=== PATIENT | male | born 1950 | race Hispanic/Latino ===

== ENCOUNTER 2017-07-07 08:06 | Observation (INO) | payer BC ==
[2017-07-07 08:20] VITALS: BMI 40.4
--- NOTE | 2017-07-07 09:00 | ED PDOC ---
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 Patient reports feeling chest tightness associated with lightheadedness, shortness of breath, and feeling clammy. Patient notes having prior episodes similar to this one, but it never lasted more than 5 minutes, compared to this episode which is lasting ~ 40 minutes. Patient denies fever, chills, chest pain , abdominal pain, nausea/vomiting, dysuria, urine output changes, LOC/dizziness/ lightheadedness, or other complaints. pt is here for further eval pt's without other complaints PMD: Dr. Flores Bankruptcy Law Specialist: Dr. Sanders (last visit was less than 6 months ago) Time/Duration: Prior to Arrival, 1 hour Symptom Onset: Sudden Symptom Course: Unchanged Quality: Tightness Severity Level: Mild Activities at Onset: Rest Context: Work Past Medical History - Provider Review Nursing Documentation Reviewed: Yes - Travel History Have you recently traveled outside [place] w/in the past 3 mons?: No - Past History Past History: No Previous - Infectious Disease Hx of Infectious Diseases: None - Cardiac Hx Cardiac Disorders: Yes (CAD s/p PCI) Hx Hypertension: Yes Other/Comment: hx of left carotid artery occluded no sx as per pt - Pulmonary Hx Respiratory Disorders: No Hx Chronic Obstructive Pulmonary Disease (COPD): No - Neurological Hx Neurological Disorder: Yes HX Cerebrovascular Accident: Yes (L-sided weakness 2004) Other/Comment: left side facial numbness "once and a while" - HEENT Hx HEENT Disorder: Yes (eyeglasses) Hx Blind: No Hx Cataracts: Yes (r eye cataract no sx left eye sx lens replacement) Hx Deafness: No Hx Difficulty Chewing: No Hx Epistaxis: No Hx Glaucoma: Yes Hx Macular Degeneration: No - Renal Hx Renal Disorder: No Hx Renal Failure: No - Endocrine/Metabolic Hx Endocrine Disorders: Yes Hx Diabetes Mellitus Type 2: Yes - Hematological/Oncological Hx Blood Disorders: No - Integumentary Hx Dermatological Disorder: No Hx Basal Cell Carcinoma: No Hx Eczema: No Hx Melanoma: No Hx Psoriasis: No Hx Squamous Cell Carcinoma: No Other/Comment: dry flakey skin both feet +2 edema, no nail to left great toe, small dry .5cm ulcer between 4th and 5th toe left foot. hammertoes 2 3 4 both feet, dry right heel wound 2cm round and dry hard white skin to left heel - Musculoskeletal/Rheumatological Hx Falls: No - Gastrointestinal Hx Gastrointestinal Disorders: Yes Hx Colostomy: No Hx Crohn's Disease: No Hx Diverticulitis: No Hx Gall Bladder Disease: No Hx Gastroesophageal Reflux: Yes Hx Gastrointestinal Ulcer: No Hx Ileostomy: No Hx Liver Failure: No Hx Pancreatitis: No HX Swallowing Problems: No - Genitourinary/Gynecological Hx Genitourinary Disorders: No Hx Hematuria: No Hx Incontinence: No Hx Prostate Problems: No Hx Sexually Transmitted Diseases: No Hx Urinary Tract Infection: No - Psychiatric Hx Psychophysiologic Disorder: No Hx Anxiety: No Hx Bipolar Disorder: No Hx Depression: No Hx Emotional Abuse: No Hx Hallucinations: No Hx Panic Disorder: No Hx Post Traumatic Stress Disorder: No Hx Psychosis: No Hx Physical Abuse: No Hx Schizophrenia: No Hx Sexual Abuse: No Hx Substance Use: No - Surgical History Hx Amputation: No Hx Appendectomy: No Hx Cardiac Catheterization: No Hx Cholecystectomy: No Hx Coronary Stent: Yes (ptca x1 stent) Hx Gastric Bypass Surgery: No Hx Hysterectomy: No Hx Joint Replacement: No Hx Kidney Transplant: No Hx Liver Transplant: No Hx Mastectomy: No Hx Musculoskeletal Surgery: Yes Hx Open Heart Surgery: No Hx Orthopedic Surgery: No Hx Splenectomy: No Hx Valve Replacement: No Other/Comment: left femoral arterial bypass 02/19/15, femoral angiogram x2, cardiac cath/ptca with 1 stent, right quadricept repair lle, right total hip replacement 10/2013 - Anesthesia Hx Anesthesia: Yes Hx Anesthesia Reactions: No Hx Malignant Hyperthermia: No - Suicidal Assessment Feels Threatened In Home Enviroment: No Family/Social History - Physician Review Nursing Documentation Reviewed: Yes Family/Social History: Unknown Family HX Smoking Status: Never Smoked Hx Alcohol Use: No Hx Substance Use: No Hx Substance Use Treatment: No Allergies/Home Meds Allergies/Adverse Reactions: Allergies Iodine and Iodide Containing Produc Allergy (Verified 07/07/17 08:35) RASH IV contrast Allergy (Uncoded 07/07/17 08:35) RASH Home Medications: Home Meds Medication Instructions Recorded Confirmed Losartan [Cozaar] 50 mg PO QAM 06/30/12 07/07/17 Metformin HCl 1,000 mg PO BID 06/30/12 07/07/17 Ramipril [Altace] 10 mg PO QAM 06/30/12 07/07/17 Rosuvastatin Calcium [Crestor] 20 mg PO DAILY 06/30/12 07/07/17 Timolol Maleate [Timolol GFS 5 ml] 1 drop OU QAM 06/30/12 07/07/17 Clopidogrel [Plavix] 75 mg PO DAILY 12/18/14 07/07/17 Insulin Glargine, Recombina 65 units SC HS 12/17/15 07/07/17 [Lantus] Insulin Lispro [humALOG] 20 units SC .BEFOREMEALS 12/17/15 07/07/17 Lansoprazole [Prevacid] 30 mg PO DAILY 12/17/15 07/07/17 Latanoprost 0.005% Opht [Xalatan 1 drop BOTHEYES DAILY 12/17/15 07/07/17 Opht] Aspirin [[place] Aspirin] 81 mg PO DAILY 07/07/17 07/07/17 Review of Systems - Review of Systems Constitutional: absent: Fatigue, Fevers Eyes: absent: Vision Changes ENT: absent: Sore Throat Respiratory: SOB Cardiovascular: Palpitations. absent: Chest Pain (chest tightness ) Gastrointestinal: absent: Abdominal Pain, Vomiting Genitourinary Male: absent: Dysuria, Urinary Output Changes Musculoskeletal: absent: Back Pain Skin: absent: Rash Neurological: Dizziness (lightheadedness). absent: Headache Endocrine: absent: Diaphoresis Hemo/Lymphatic: Normal Psychiatric: Normal Physical Exam Vital Signs Reviewed: Yes Vital Signs Temp Pulse Resp BP Pulse Ox 07/07/17 08:20 98.3 F 96 H 18 171/87 H 98 Temperature: Afebrile Blood Pressure: Hypertensive Pulse: Regular Respiratory Rate: Normal Appearance: Positive for: Well-Appearing, Non-Toxic, Uncomfortable, Other (alert /awake, GCS = 15, oriented x 3, slightly uncomfortable, resting in bed, NAD, cooperative, follows command with ease) Pain Distress: None Mental Status: Positive for: Alert and Oriented X 3 - Systems Exam Head: Present: Atraumatic, Normocephalic Pupils: Present: PERRL, Other (no nystagmus, no photophobia, sclera anicteric, visual field intact b/l) Extroacular Muscles: Present: EOMI Conjunctiva: Present: Normal Ears: Present: Normal Mouth: Present: Moist Mucous Membranes, Normal Teeth, Other (uvula/tongue are midline; no dsyphonia, no drooling/stridor, intact dentitions) Pharnyx: Present: Normal Nose (External): Present: Atraumatic Nose (Internal): Present: Normal Inspection Neck: Present: Normal Range of Motion, Trachea Midline. No: Meningeal Signs, MIDLINE TENDERNESS Respiratory/Chest: Present: Clear to Auscultation, Good Air Exchange, Other ( CTA b/l, no w/r/r, no tachypenia). No: Respiratory Distress, Accessory Muscle Use, Wheezes, Rales, Retracting, Rhonchi Cardiovascular: Present: Regular Rate and Rhythm, Normal S1, S2, Other ( occasional ectopies noted, regular rate). No: Murmurs Abdomen: Present: Normal Bowel Sounds, Other (well nourished/obese male, no focal tenderness, no pineda's sign, no mcburney's point tenderness, no masses/ rebound/guarding/rigidity). No: Tenderness, Distention, Peritoneal Signs, Rebound, Guarding Back: Present: Normal Inspection. No: CVA Tenderness, Midline Tenderness Upper Extremity: Present: Normal Inspection, Normal ROM, NORMAL PULSES, Neurovascularly Intact, Capillary Refill < 2s Lower Extremity: Present: Normal Inspection, NORMAL PULSES, Normal ROM, Neurovascularly Intact, Capillary Refill < 2 s. No: Rob's Sign Neurological: Present: GCS=15, CN II-XII Intact, Speech Normal, Other (no slurr speech, no facial asymmetries, NIH stroke scale ~ 0) Skin: Present: Warm, Normal Color, Other (cap refill < 1sec, no ulcerations, no petechiae). 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 FINDINGS: LUNGS: The lungs are clear. PLEURA: No significant pleural effusion identified, no pneumothorax apparent. CARDIOVASCULAR: Normal. OSSEOUS STRUCTURES: No significant abnormalities. VISUALIZED UPPER ABDOMEN: Normal. OTHER FINDINGS: None. IMPRESSION: No active pulmonary disease. 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 PCP, made aware, agrees with admission/ observation; would like to consult Dr Jack (cards) pt is made aware of his medical results agrees with admission/observation Re-evaluation Time: 10:24 Reassessment Condition: Improved - Critical Care Critical Care Minutes: 30 minutes Critical Care Time: Excluding Proc Time Narrative Critical Care (Text): 07/07/17 10:24 critical care time: 30min, excluding procedure time, excluding time teaching residents/students/mid-level providers; including initial eval/diagnosis, diagnostic interpretation, re-eval, consultations, final disposition - Lab Interpretations Lab Results: 07/07/17 08:23 07/07/17 08:20 Lab Results 07/07/17 08:30: Magnesium 1.8, NT-Pro-B Natriuret Pep 135 07/07/17 08:23: WBC 8.8, RBC 5.12, Hgb 14.2, Hct 43.2, MCV 84.4, MCH 27.7, MCHC 32.9, RDW 13.9, Plt Count 284, MPV 10.3, Gran % 63.8, Lymph % (Auto) 26.1, Tyrrell % (Auto) 8.1 H, Eos % (Auto) 1.7, Baso % (Auto) 0.3, Gran # 5.61, Lymph # (Auto ) 2.3, Tyrrell # (Auto) 0.7 H, Eos # (Auto) 0.2, Baso # (Auto) 0.03 07/07/17 08:20: PT 11.5, INR 1.00, APTT 30.1 07/07/17 08:20: Sodium 144, Potassium 4.1, Chloride 107, Carbon Dioxide 27, Anion Gap 15, BUN 23 H, Creatinine 1.1, Est GFR ( Amer) > 60, Est GFR ( Non-Af Amer) > 60, Random Glucose 122 H, Calcium 9.4, Total Bilirubin 0.4, AST 29, ALT 25, Alkaline Phosphatase 48, Lactate Dehydrogenase 375, Total Creatine Kinase 251 H, CK-MB (CK-2) 3.9 H, CK-MB (CK-2) % Cancelled, Troponin I 0.01, Total Protein 6.8, Albumin 4.2, Globulin 2.6, Albumin/Globulin Ratio 1.6 I have reviewed the lab results: Yes Interpretation: All labs normal - RAD Interpretation Narrative RAD Interpretations (Text): 07/07/17 10:25 HISTORY: chest pain COMPARISON: 12/17/2015. FINDINGS: LUNGS: The lungs are clear. PLEURA: No significant pleural effusion identified, no pneumothorax apparent. CARDIOVASCULAR: Normal. OSSEOUS STRUCTURES: No significant abnormalities. VISUALIZED UPPER ABDOMEN: Normal. OTHER FINDINGS: None. IMPRESSION: No active pulmonary disease. 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 - EKG Interpretation EKG Interpretation (Text): 07/07/17 09:49 Sinus rhythm at 95 bpm, LAD, with PACs, RBBB, qs in leads III/F, non-specific st -t changes, ABNL EKG; unchanged compare with old ekg 11/2015 Interpreted by ED Physician: Yes Type: 12 lead EKG Comparison: Similar to previous EKG - Medication Orders Current Medication Orders: Discontinued Medications Aspirin (Ecotrin) 81 mg PO STAT STA Stop: 07/07/17 09:21 Last Admin: 07/07/17 09:30 Dose: Not Given Non-Admin Reason: Patient Refused Comments: PT HAD OWN Nitroglycerin (Nitro-Bid 2% Oint) 1 ea TOP STAT STA Stop: 07/07/17 09:21 Last Admin: 07/07/17 09:30 Dose: 1 ea - Scribe Statement The provider has reviewed the documentation as recorded by the Dakota Foster Provider Scribe Attestation: All medical record entries made by the Scribe were at my direction and personally dictated by me. I have reviewed the chart and agree that the record accurately reflects my personal performance of the history, physical exam, medical decision making, and the department course for this patient. I have also personally directed, reviewed, and agree with the discharge instructions and disposition. Disposition/Present on Arrival - Present on Arrival Any Indicators Present on Arrival: No History of DVT/PE: No History of Uncontrolled Diabetes: No Urinary Catheter: No History of Decub. Ulcer: No History Surgical Site Infection Following: None - Disposition Have Diagnosis and Disposition been Completed?: Yes Diagnosis: Palpitations, Chest pain with low risk for cardiac etiology, Elevated blood pressure reading Disposition: HOSPITALIZED Disposition Time: 10:20 Patient Plan: Admission, Observation Patient Problems: Current Active Problems Problem Status Onset Palpitations Acute Chest pain with low risk for cardiac etiology Acute Condition: STABLE Discharge Instructions (ExitCare): Chest Pain (ED), Hypertension (ED) Referrals: Valentina Drake, [Primary Care Provider] - Follow up with primary Forms: [employer] (Kosovan)
[2017-07-07] MEDS ORDERED: Nitroglycerin 2% Ointment Foilpak UD TOP STA (09:20)
[2017-07-07 09:29] LABS: BASO # 0.03 K/mm3 (0.0-2.0); BASO % 0.3 % (0.0-3.0); EOS # 0.2 (0.0-0.7); EOS % 1.7 % (1.5-5.0); GRAN # 5.61 (1.4-6.5); GRAN % 63.8 % (50.0-68.0); HEMOGLOBIN 14.2 g/dL (14.0-18.0); LYMPH # 2.3 (1.2-3.4); LYMPH % 26.1 % (22.0-35.0); MEAN CELL VOLUME 84.4 fl (80.0-105.0); MEAN CORPUSCULAR HEMOGLOBIN 27.7 pg (25.0-35.0); MEAN CORPUSCULAR HGB CONC 32.9 g/dl (31.0-37.0); MEAN PLATELET VOLUME 10.3 fl (7.0-11.0); MONO # 0.7 (0.1-0.6); MONO % 8.1 % (1.0-6.0); RBC 5.12 10^6/uL (3.5-6.1); RED CELL DISTRIBUTION WIDTH 13.9 % (11.5-14.5); WHITE BLOOD COUNT 8.8 10^3/ul (4.5-11.0)
[2017-07-07 09:41] LABS: ALB/GLOB RATIO 1.6 (1.1-1.8); ALBUMIN 4.2 g/dL (3.0-4.8); ALT/SGPT 25 U/L (7-56); AST/SGOT 29 U/L (17-59); BLOOD UREA NITROGEN 23 mg/dL (7-21); CALCIUM 9.4 mg/dL (8.4-10.5); GFR AFRICAN-AMERICAN > 60; GFR NON-AFRICAN AMERICAN > 60; PARTIAL THROMBOPLASTIN TIME 30.1 Seconds (25.1-36.5); PROTHROMBIN TIME 11.5 SECONDS (9.4-12.5)
[2017-07-07 09:52] LABS: TROPONIN I 0.01 ng/mL
--- NOTE | 2017-07-07 09:57 | RAD ---
HISTORY: chest pain COMPARISON: 12/17/2015. FINDINGS: LUNGS: The lungs are clear. PLEURA: No significant pleural effusion identified, no pneumothorax apparent. CARDIOVASCULAR: Normal. OSSEOUS STRUCTURES: No significant abnormalities. VISUALIZED UPPER ABDOMEN: Normal. OTHER FINDINGS: None. IMPRESSION: No active pulmonary disease.
[2017-07-07 09:58] LABS: CK-MB 3.9 ng/mL (0.0-3.6)
[2017-07-07 11:54] LABS: URINE BILIRUBIN NEGATIVE (NEGATIVE); URINE BLOOD LARGE (NEGATIVE); URINE GLUCOSE (UA) NEGATIVE (NEGATIVE); URINE LEUKOCYTE ESTERASE NEGATIVE Leu/uL (NEGATIVE); URINE PROTEIN TRACE mg/dL (<30 mg/dL); URINE UROBILINOGEN 0.2 E.U./dL (<1 E.U./dL)
[2017-07-07 11:56] LABS: URINE APPEARANCE CLEAR (CLEAR); URINE COLOR YELLOW (YELLOW)
[2017-07-07] MEDS ORDERED: Insulin Lispro 1 UNITS/0.01 ML SC SCH (12:00)
[2017-07-07 12:01] LABS: URINE RBC 25 - 30 /hpf (0-2); URINE WBC 0 - 2 /hpf (0-6)
[2017-07-07 12:02] LABS: URINE BACTERIA MOD (NEG)
--- NOTE | 2017-07-07 12:06 | CP.PCM.HP ---
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 Patient states he suddenly noticed his heart beating irregularly at work and lasted 40 minutes. Patient states he intermittently has these episodes but they only last a few seconds. 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 Patient states he did not take any medications for it at the time. Patient currently has no palpitations. During the episode, patient also mentioned mild chest discomfort with no radiation. Currently, patient denies chest pain, shortness of breath, nausea, vomiting, diarrhea, fever, chills, diaphoresis, dysuria, changes in vision, numbness, tingling. 12 point ROS as per HPI, otherwise negative PMH: As above Surgical Hx: left Fem-pop bypass Family hx: Father - palpitations Social Hx: Denies alcohol, tobacco, or illicit drug use Allergies: IV contrast Medications: Reviewed, as per MAR Present on Admission - Present on Admission Any Indicators Present on Admission: No Past Patient History - Infectious Disease Hx of Infectious Diseases: None - Past Social History Smoking Status: Never Smoked - CARDIAC Hx Cardiac Disorders: Yes (CAD s/p PCI) Hx Hypertension: Yes Other/Comment: hx of left carotid artery occluded no sx as per pt - PULMONARY Hx Respiratory Disorders: No Hx Chronic Obstructive Pulmonary Disease (COPD): No - NEUROLOGICAL Hx Neurological Disorder: Yes HX Cerebrovascular Accident: Yes (L-sided weakness 2004) Other/Comment: left side facial numbness "once and a while" - HEENT Hx HEENT Problems: Yes (eyeglasses) Hx Blind: No Hx Cataracts: Yes (r eye cataract no sx left eye sx lens replacement) Hx Deafness: No Hx Difficulty Chewing: No Hx Epistaxis: No Hx Glaucoma: Yes Hx Macular Degeneration: No - RENAL Hx Chronic Kidney Disease: No Hx Renal Failure: No - ENDOCRINE/METABOLIC Hx Endocrine Disorders: Yes Hx Diabetes Mellitus Type 2: Yes - HEMATOLOGICAL/ONCOLOGICAL Hx Blood Disorders: No - INTEGUMENTARY Hx Dermatological Problems: No Hx Basil Cell: No Hx Eczema: No Hx Melanoma: No Hx Psoriasis: No Hx Squamous Cell: No Other/Comment: dry flakey skin both feet +2 edema, no nail to left great toe, small dry .5cm ulcer between 4th and 5th toe left foot. hammertoes 2 3 4 both feet, dry right heel wound 2cm round and dry hard white skin to left heel - MUSCULOSKELETAL/RHEUMATOLOGICAL Hx Falls: No - GASTROINTESTINAL Hx Gastrointestinal Disorders: Yes Hx Colostomy: No Hx Crohn's Disease: No Hx Diverticulitis: No Hx Gall Bladder Disease: No Hx Gastroesophageal Reflux: Yes Hx Ileostomy: No Hx Liver Failure: No Hx Pancreatitis: No HX Swallowing Problems: No - GENITOURINARY/GYNECOLOGICAL Hx Genitourinary Disorders: No Hx Hematuria: No Hx Incontinence: No Hx Prostate Problems: No Hx Sexually Transmitted Disorders: No Hx Urinary Tract Infection: No - PSYCHIATRIC Hx Psychophysiologic Disorder: No Hx Anxiety: No Hx Bipolar Disorder: No Hx Depression: No Hx Emotional Abuse: No Hx Hallucinations: No Hx Panic Symptoms: No Hx Post Traumatic Stress Disorder: No Hx Psychosis: No Hx Physical Abuse: No Hx Schizophrenia: No Hx Sexual Abuse: No Hx Substance Use: No - SURGICAL HISTORY Hx Amputation: No Hx Appendectomy: No Hx Cardiac Catheterization: No Hx Cholecystectomy: No Hx Coronary Stent: Yes (ptca x1 stent) Hx Gastric Bypass Surgery: No Hx Hysterectomy: No Hx Joint Replacement: No Hx Kidney Transplant: No Hx Liver Transplant: No Hx Mastectomy: No Hx Musculoskeletal Surgery: Yes Hx Open Heart Surgery: No Hx Orthopedic Surgery: No Hx Splenectomy: No Hx Valve Replacement: No Other/Comment: left femoral arterial bypass 02/19/15, femoral angiogram x2, cardiac cath/ptca with 1 stent, right quadricept repair lle, right total hip replacement 10/2013 - ANESTHESIA Hx Anesthesia: Yes Hx Anesthesia Reactions: No Hx Malignant Hyperthermia: No Meds Allergies/Adverse Reactions: Allergies Allergy/AdvReac Type Severity Reaction Status Date / Time Iodine and Iodide Containing Allergy RASH Verified 07/07/17 11:32 Produc IV contrast Allergy RASH Uncoded 07/07/17 11:32 Physical Exam - Constitutional Appears: Non-toxic, No Acute Distress - Head Exam Head Exam: ATRAUMATIC, NORMAL INSPECTION, NORMOCEPHALIC - Eye Exam Eye Exam: EOMI, Normal appearance - ENT Exam ENT Exam: Mucous Membranes Moist, Normal Exam - Respiratory Exam Respiratory Exam: Clear to Auscultation Bilateral, NORMAL BREATHING PATTERN - Cardiovascular Exam Cardiovascular Exam: RRR, +S1, +S2 - GI/Abdominal Exam GI & Abdominal Exam: Normal Bowel Sounds, Soft. absent: Tenderness - Extremities Exam Extremities exam: Positive for: normal inspection. Negative for: calf tenderness, pedal edema - Neurological Exam Neurological exam: Alert, CN II-XII Intact, Oriented x3 - Psychiatric Exam Psychiatric exam: Normal Affect, Normal Mood - Skin Skin Exam: Intact, Normal Color, Warm Results - Vital Signs Recent Vital Signs: Last Vital Signs Temp 98.3 F 07/07/17 08:20 Pulse 80 07/07/17 11:14 Resp 18 07/07/17 11:14 BP 147/78 07/07/17 11:14 Pulse Ox 97 07/07/17 11:14 - Labs Result Diagrams: 07/07/17 08:23 07/07/17 08:20 Assessment & Plan - Assessment and Plan (Free Text) Plan: 1. Palpitations 2. CAD 3. HTN 4. DM 2 5. PAD s/p bypass 6. Obesity 7. GERD 66 year old male presenting with palpitations. At this time, EKG has been reviewed which displayed NSR with right bundle branch block. Chest x-ray did not display any acute pathology. Last discharge summary reviewed. Patient is currently asymptomatic. Patient will be seen by cardiology. Patient will have cardiac enzymes trended and be placed on telemetry for further monitoring. We will continue home medications. Nadeen, PGY-2 <Feliz Rowley S - Last Filed: 07/07/17 17:33> Results - Vital Signs Recent Vital Signs: Last Vital Signs Temp 97.2 F L 07/07/17 16:00 Pulse 82 07/07/17 16:00 Resp 20 07/07/17 16:00 BP 130/70 07/07/17 16:00 Pulse Ox 95 07/07/17 16:00 - Labs Result Diagrams: 07/07/17 08:23 07/07/17 08:20 Labs: Laboratory Results - last 24 hr 07/07/17 07/07/17 07/07/17 11:36 14:25 14:45 POC Glucose (mg/dL) 99 Troponin I < 0.01 Urine Color Yellow Urine Appearance Clear Urine pH 6.0 Ur Specific [place] 1.010 Urine Protein Trace H Urine Glucose (UA) Negative Urine Ketones Negative Urine Blood Large H Urine Nitrate Negative Urine Bilirubin Negative Urine Urobilinogen 0.2 Ur Leukocyte Esterase Negative Urine RBC 25 - 30 Urine WBC 0 - 2 Ur Epithelial Cells None Urine Bacteria Mod 07/07/17 15:48 POC Glucose (mg/dL) 119 H Troponin I Urine Color Urine Appearance Urine pH Ur Specific [place] Urine Protein Urine Glucose (UA) Urine Ketones Urine Blood Urine Nitrate Urine Bilirubin Urine Urobilinogen Ur Leukocyte Esterase Urine RBC Urine WBC Ur Epithelial Cells Urine Bacteria Assessment & Plan - Assessment and Plan (Free Text) Plan: Pt was seen as examined. The note of the medical imaging technician has been reviewed. Labs reviewed. Medications have been reviewed. Will await cardiology input. fs with insulin coverage. follow troponins on tele.
[2017-07-07] MEDS ORDERED: Pneumococcal 23-Valent Vaccine IM ONE (13:44)
--- NOTE | 2017-07-07 14:24 | CARD ---
APPROVED REPORT EKG Measurement Heart [id number] <Conclusion> Sinus rhythm with premature atrial complexes with aberrant conduction Left axis deviation Right bundle branch block Inferior infarct, age undetermined Abnormal ECG
[2017-07-07] MEDS: Insulin Lispro (humaLOG) MEDIUM Coverage SC SCH ×2 (16:31→21:53)
[2017-07-07 16:45] VITALS: RESP 20
[2017-07-07] MEDS ORDERED: INSULIN GLARGINE SC SCH (22:00)
[2017-07-07] MEDS ORDERED: Insulin Detemir 100 units/ml Vial (Levemir) SC SCH (22:00)
[2017-07-08] MEDS ORDERED: Pantoprazole 40 mg EC Tab PO SCH (06:00)
[2017-07-08 06:59] LABS: HEMOGLOBIN 14.1 g/dL (14.0-18.0); MEAN CELL VOLUME 84.2 fl (80.0-105.0); MEAN CORPUSCULAR HEMOGLOBIN 27.2 pg (25.0-35.0); MEAN CORPUSCULAR HGB CONC 32.3 g/dl (31.0-37.0); MEAN PLATELET VOLUME 10.3 fl (7.0-11.0); RBC 5.19 10^6/uL (3.5-6.1); WHITE BLOOD COUNT 8.9 10^3/ul (4.5-11.0)
[2017-07-08 07:16] LABS: ALB/GLOB RATIO 1.6 (1.1-1.8); ALBUMIN 4.3 g/dL (3.0-4.8); ALT/SGPT 32 U/L (7-56); AST/SGOT 28 U/L (17-59); BLOOD UREA NITROGEN 20 mg/dL (7-21); CALCIUM 9.3 mg/dL (8.4-10.5); GFR AFRICAN-AMERICAN > 60; GFR NON-AFRICAN AMERICAN > 60
[2017-07-08] MEDS ORDERED: Insulin Detemir 100 units/ml Vial (Levemir) SC SCH (07:30)
[2017-07-08] MEDS: Insulin Lispro (humaLOG) MEDIUM Coverage SC SCH (08:05)
[2017-07-08 08:51] VITALS: BP 156/84; TEMP 97.9; O2SAT 98
--- NOTE | 2017-07-08 09:22 | CP.PCM.DIS ---
<Perfecto Senior - Last Filed: 07/08/17 09:18> Provider - Provider Date of Admission: 07/07/17 10:31 Attending physician: Feliz Rowley MD Primary care physician: Valentina Profile Required Consults: Cardio - [place] Time Spent in preparation of Discharge (in minutes): 45 Diagnosis - Discharge Diagnosis (1) HTN (hypertension) Status: Chronic (2) HLD (hyperlipidemia) Status: Chronic (3) Palpitations Status: Chronic Hospital Course - Lab Results Lab Results: Most Recent Lab Values WBC 8.9 10^3/ul (4.5-11.0) 07/08/17 07:00 RBC 5.19 10^6/uL (3.5-6.1) 07/08/17 07:00 Hgb 14.1 g/dL (14.0-18.0) 07/08/17 07:00 Hct 43.7 % (42.0-52.0) 07/08/17 07:00 MCV 84.2 fl (80.0-105.0) 07/08/17 07:00 MCH 27.2 pg (25.0-35.0) 07/08/17 07:00 MCHC 32.3 g/dl (31.0-37.0) 07/08/17 07:00 RDW 14.0 % (11.5-14.5) 07/08/17 07:00 Plt Count 289 10^3/uL (120.0-450.0) 07/08/17 07:00 MPV 10.3 fl (7.0-11.0) 07/08/17 07:00 Gran % 63.8 % (50.0-68.0) 07/07/17 08:23 Lymph % (Auto) 26.1 % (22.0-35.0) 07/07/17 08:23 Banner % (Auto) 8.1 % (1.0-6.0) H 07/07/17 08:23 Eos % (Auto) 1.7 % (1.5-5.0) 07/07/17 08:23 Baso % (Auto) 0.3 % (0.0-3.0) 07/07/17 08:23 Gran # 5.61 (1.4-6.5) 07/07/17 08:23 Lymph # (Auto) 2.3 (1.2-3.4) 07/07/17 08:23 Banner # (Auto) 0.7 (0.1-0.6) H 07/07/17 08:23 Eos # (Auto) 0.2 (0.0-0.7) 07/07/17 08:23 Baso # (Auto) 0.03 K/mm3 (0.0-2.0) 07/07/17 08:23 PT 11.5 SECONDS (9.4-12.5) 07/07/17 08:20 INR 1.00 (0.93-1.08) 07/07/17 08:20 APTT 30.1 Seconds (25.1-36.5) 07/07/17 08:20 Sodium 144 mmol/L (132-148) 07/08/17 06:00 Potassium 4.2 mmol/L (3.6-5.0) 07/08/17 06:00 Chloride 103 mmol/L (98-107) 07/08/17 06:00 Carbon Dioxide 28 mmol/L (21-33) 07/08/17 06:00 Anion Gap 17 (10-20) 07/08/17 06:00 BUN 20 mg/dL (7-21) 07/08/17 06:00 Creatinine 1.1 mg/dl (0.8-1.5) 07/08/17 06:00 Est GFR ( Amer) > 60 07/08/17 06:00 Est GFR (Non-Af Amer) > 60 07/08/17 06:00 POC Glucose (mg/dL) 114 mg/dL (65-110) H 07/08/17 03:10 Random Glucose 108 mg/dL (70-110) 07/08/17 06:00 Calcium 9.3 mg/dL (8.4-10.5) 07/08/17 06:00 Magnesium 1.8 mg/dL (1.7-2.2) 07/07/17 08:30 Total Bilirubin 0.7 mg/dL (0.2-1.3) 07/08/17 06:00 AST 28 U/L (17-59) 07/08/17 06:00 ALT 32 U/L (7-56) 07/08/17 06:00 Alkaline Phosphatase 43 U/L (38-126) 07/08/17 06:00 Lactate Dehydrogenase 375 U/L (333-699) 07/07/17 08:20 Total Creatine Kinase 251 U/L (35-230) H 07/07/17 08:20 CK-MB (CK-2) 3.9 ng/mL (0.0-3.6) H 07/07/17 08:20 CK-MB (CK-2) % Cancelled 07/07/17 08:20 Troponin I < 0.01 ng/mL 07/07/17 20:02 NT-Pro-B Natriuret Pep 135 pg/mL (0-450) 07/07/17 08:30 Total Protein 7.1 g/dL (5.8-8.3) 07/08/17 06:00 Albumin 4.3 g/dL (3.0-4.8) 07/08/17 06:00 Globulin 2.7 gm/dL 07/08/17 06:00 Albumin/Globulin Ratio 1.6 (1.1-1.8) 07/08/17 06:00 TSH 3rd Generation 0.75 mIU/mL (0.46-4.68) 07/07/17 08:30 Urine Color Yellow (YELLOW) 07/07/17 11:36 Urine Appearance Clear (CLEAR) 07/07/17 11:36 Urine pH 6.0 (4.7-8.0) 07/07/17 11:36 Ur Specific [place] 1.010 (1.005-1.035) 07/07/17 11:36 Urine Protein Trace mg/dL (<30 mg/dL) H 07/07/17 11:36 Urine Glucose (UA) Negative mg/dL (NEGATIVE) 07/07/17 11:36 Urine Ketones Negative mg/dL (NEGATIVE) 07/07/17 11:36 Urine Blood Large (NEGATIVE) H 07/07/17 11:36 Urine Nitrate Negative (NEGATIVE) 07/07/17 11:36 Urine Bilirubin Negative (NEGATIVE) 07/07/17 11:36 Urine Urobilinogen 0.2 E.U./dL (<1 E.U./dL) 07/07/17 11:36 Ur Leukocyte Esterase Negative Brynn/uL (NEGATIVE) 07/07/17 11:36 Urine RBC 25 - 30 /hpf (0-2) 07/07/17 11:36 Urine WBC 0 - 2 /hpf (0-6) 07/07/17 11:36 Ur Epithelial Cells None /hpf (0-5) 07/07/17 11:36 Urine Bacteria Mod (NEG) 07/07/17 11:36 - Hospital Course Hospital Course: 66 year old male with past medical history of HLD, CAD, CVA, left fem-pop bypass , DM, HTN, PAD, GERD, and obesity admitted for palpitations. Patient found to have NSR with right bundle branch block on EKG. Patient intermittently had palpitation episodes at home, but did not occur in hospital. 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 Patient will be discharged on his same home medications and follow up with cardiology and PMD within 1 week. Discharge Exam - Head Exam Head Exam: ATRAUMATIC, NORMAL INSPECTION, NORMOCEPHALIC - ENT Exam ENT Exam: Mucous Membranes Moist - Respiratory Exam Respiratory Exam: NORMAL BREATHING PATTERN, UNREMARKABLE - Cardiovascular Exam Cardiovascular Exam: RRR, +S1, +S2 - GI/Abdominal Exam GI & Abdominal Exam: Normal Bowel Sounds, Soft. absent: Tenderness - Extremities Exam Extremities exam: normal inspection - Neurological Exam Neurological exam: Alert, CN II-XII Intact, Oriented x3 - Skin Skin Exam: Intact, Normal Color, Warm Discharge Plan - Follow Up Plan Condition: STABLE Disposition: HOME/ ROUTINE Instructions: Palpitations, Chest Pain (DC), Palpitations (DC) Additional Instructions: FOLLOW UP WITH PRIMARY MD IN 2-3 WEEKS. ANY CHEST PAIN, DISCOMFORT, SHORTNESS OF BREATH REPORT TO MD OR GO TO ER. CONTINUE MEDICATION PREVIOUSLY ON AT HOME. Referrals: [facility], [Non-Staff] - <Feliz Rowley - Last Filed: 07/11/17 09:21> Provider - Provider Date of Admission: 07/07/17 10:31 Attending physician: Feliz Rowley MD Hospital Course - Lab Results Lab Results: Most Recent Lab Values WBC 8.9 10^3/ul (4.5-11.0) 07/08/17 07:00 RBC 5.19 10^6/uL (3.5-6.1) 07/08/17 07:00 Hgb 14.1 g/dL (14.0-18.0) 07/08/17 07:00 Hct 43.7 % (42.0-52.0) 07/08/17 07:00 MCV 84.2 fl (80.0-105.0) 07/08/17 07:00 MCH 27.2 pg (25.0-35.0) 07/08/17 07:00 MCHC 32.3 g/dl (31.0-37.0) 07/08/17 07:00 RDW 14.0 % (11.5-14.5) 07/08/17 07:00 Plt Count 289 10^3/uL (120.0-450.0) 07/08/17 07:00 MPV 10.3 fl (7.0-11.0) 07/08/17 07:00 Gran % 63.8 % (50.0-68.0) 07/07/17 08:23 Lymph % (Auto) 26.1 % (22.0-35.0) 07/07/17 08:23 Banner % (Auto) 8.1 % (1.0-6.0) H 07/07/17 08:23 Eos % (Auto) 1.7 % (1.5-5.0) 07/07/17 08:23 Baso % (Auto) 0.3 % (0.0-3.0) 07/07/17 08:23 Gran # 5.61 (1.4-6.5) 07/07/17 08:23 Lymph # (Auto) 2.3 (1.2-3.4) 07/07/17 08:23 Banner # (Auto) 0.7 (0.1-0.6) H 07/07/17 08:23 Eos # (Auto) 0.2 (0.0-0.7) 07/07/17 08:23 Baso # (Auto) 0.03 K/mm3 (0.0-2.0) 07/07/17 08:23 PT 11.5 SECONDS (9.4-12.5) 07/07/17 08:20 INR 1.00 (0.93-1.08) 07/07/17 08:20 APTT 30.1 Seconds (25.1-36.5) 07/07/17 08:20 Sodium 144 mmol/L (132-148) 07/08/17 06:00 Potassium 4.2 mmol/L (3.6-5.0) 07/08/17 06:00 Chloride 103 mmol/L (98-107) 07/08/17 06:00 Carbon Dioxide 28 mmol/L (21-33) 07/08/17 06:00 Anion Gap 17 (10-20) 07/08/17 06:00 BUN 20 mg/dL (7-21) 07/08/17 06:00 Creatinine 1.1 mg/dl (0.8-1.5) 07/08/17 06:00 Est GFR ( Amer) > 60 07/08/17 06:00 Est GFR (Non-Af Amer) > 60 07/08/17 06:00 POC Glucose (mg/dL) 108 mg/dL (65-110) 07/08/17 07:27 Random Glucose 108 mg/dL (70-110) 07/08/17 06:00 Calcium 9.3 mg/dL (8.4-10.5) 07/08/17 06:00 Magnesium 1.8 mg/dL (1.7-2.2) 07/07/17 08:30 Total Bilirubin 0.7 mg/dL (0.2-1.3) 07/08/17 06:00 AST 28 U/L (17-59) 07/08/17 06:00 ALT 32 U/L (7-56) 07/08/17 06:00 Alkaline Phosphatase 43 U/L (38-126) 07/08/17 06:00 Lactate Dehydrogenase 375 U/L (333-699) 07/07/17 08:20 Total Creatine Kinase 251 U/L (35-230) H 07/07/17 08:20 CK-MB (CK-2) 3.9 ng/mL (0.0-3.6) H 07/07/17 08:20 CK-MB (CK-2) % Cancelled 07/07/17 08:20 Troponin I < 0.01 ng/mL 07/07/17 20:02 NT-Pro-B Natriuret Pep 135 pg/mL (0-450) 07/07/17 08:30 Total Protein 7.1 g/dL (5.8-8.3) 07/08/17 06:00 Albumin 4.3 g/dL (3.0-4.8) 07/08/17 06:00 Globulin 2.7 gm/dL 07/08/17 06:00 Albumin/Globulin Ratio 1.6 (1.1-1.8) 07/08/17 06:00 TSH 3rd Generation 0.75 mIU/mL (0.46-4.68) 07/07/17 08:30 Urine Color Yellow (YELLOW) 07/07/17 11:36 Urine Appearance Clear (CLEAR) 07/07/17 11:36 Urine pH 6.0 (4.7-8.0) 07/07/17 11:36 Ur Specific [place] 1.010 (1.005-1.035) 07/07/17 11:36 Urine Protein Trace mg/dL (<30 mg/dL) H 07/07/17 11:36 Urine Glucose (UA) Negative mg/dL (NEGATIVE) 07/07/17 11:36 Urine Ketones Negative mg/dL (NEGATIVE) 07/07/17 11:36 Urine Blood Large (NEGATIVE) H 07/07/17 11:36 Urine Nitrate Negative (NEGATIVE) 07/07/17 11:36 Urine Bilirubin Negative (NEGATIVE) 07/07/17 11:36 Urine Urobilinogen 0.2 E.U./dL (<1 E.U./dL) 07/07/17 11:36 Ur Leukocyte Esterase Negative Brynn/uL (NEGATIVE) 07/07/17 11:36 Urine RBC 25 - 30 /hpf (0-2) 07/07/17 11:36 Urine WBC 0 - 2 /hpf (0-6) 07/07/17 11:36 Ur Epithelial Cells None /hpf (0-5) 07/07/17 11:36 Urine Bacteria Mod (NEG) 07/07/17 11:36 - Hospital Course Hospital Course: Pt seen and examined on 07-08-17. Note of medical transcriptionist reviewed. Labs and meds reviewed. Pt to be discharged zion and f/u with PMD and Cardiology.
[2017-07-08] MEDS ORDERED: TIMOLOL XE 0.5% OU SCH (10:00)
[2017-07-08 11:59] VITALS: PULSE 85
--- NOTE | 2017-07-08 16:29 | CON ---
DATE: 07/08/2017 REASON FOR CONSULTATION: Palpitations. HISTORY OF PRESENT ILLNESS: This is a 66-year-old man, well known to our practice, with 30 to 40 minutes of palpitations described as strong rapid heart beats in the upper chest which lasted longer than previously experienced. He has noted similar episodes lasting a few minutes, this time it lasted a half an hour or a bit longer. He came to the emergency room, but by the time he arrived the symptoms had subsided. There was no chest pain, shortness of breath, orthopnea, PND, syncope, presyncope, lightheadedness, dizziness, vertigo. There was no abdominal pain, nausea, vomiting, diarrhea, constipation, melena, fever, chills, cough, sputum production or hemoptysis. PAST MEDICAL HISTORY: His past medical history is complex. He has had coronary artery disease and coronary interventions. 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 He has a history of hypertension, hyperlipidemia, diabetes, peripheral arterial disease with peripheral interventions and vascular bypass surgery. 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 MEDICATIONS AT THE TIME OF ADMISSION: Include losartan, metformin, Altace, Coreg, Crestor, insulin, Plavix, Prevacid, aspirin, timolol, Xalatan. ALLERGIES: HE NOTES ALLERGIES TO IODINE AND IODINE CONTAINING PRODUCTS. SOCIAL HISTORY: He lives at home. He ambulates with a cane and brace. He does not smoke. He does not drink alcohol significantly. FAMILY HISTORY: Noncontributory. REVIEW OF SYSTEMS: A 10-point review of systems is otherwise unremarkable except as noted above. PHYSICAL EXAMINATION GENERAL: He is a well-developed man, lying in his bed on telemetry, in no acute distress. VITAL SIGNS: Notable for sinus rhythm at 73 beats per minute, blood pressure 130/70, afebrile, respirations 18-20, O2 sat 95%-97% on room air. HEENT: Reveals no neck vein distention, thyromegaly, or carotid bruit. Mucous membranes moist. Conjunctivae are pink. NECK: Supple. LUNGS: Lung mcwilliams clear. HEART: Revealed normal first and second heart sounds. ABDOMEN: Soft. Bowel sounds present. No mass, organomegaly, tenderness, rebound, or guarding. No CVA tenderness. No palpable abdominal aortic aneurysm. EXTREMITIES: Revealed no cyanosis, clubbing, or edema. NEUROLOGIC: Awake, alert, and oriented. PSYCHIATRIC: Normal as to mood and affect. SKIN: Warm and dry. No rash or cellulitis. LABORATORY AND IMAGING: EKG demonstrates regular sinus rhythm, PVC, right bundle-branch block, left anterior hemiblock, nonspecific ST-wave changes; no change from prior EKG. Chest x-ray reveals no active pulmonary disease. CBC is unremarkable. PT/INR, PTT unremarkable. Electrolytes, BUN, creatinine, blood sugar, LFTs all unremarkable. Three sets of cardiac enzymes negative. BNP 135. TSH is normal. Urinalysis is noted. ASSESSMENT: Warner Benton is a 66-year-old man with an episode of palpitations lasting about 30 to 40 minutes, this may have been a run of atrial fibrillation or supraventricular tachycardia. The symptoms resolved prior to arrival in the emergency room. He has had no arrhythmia while on telemetry. Cardiac enzymes are negative. His old records are reviewed. I have discussed the case with Dr. Rowley. We were planning to discharge him later today. Plans for outpatient followup with Dr. Jack in the office with an event recorder or Holter monitor to be arranged. He will report any recurring symptoms promptly. He will continue his usual medications. Pete Bob MD [facility]
== END 2017-07-08 12:55 | disposition home or self-care (01) ==
LOC: ED 08:06 → ERH 10:31 → 3RNO 11:26
PROVIDERS: ADMIT Internal Medicine Nephrology; ATTEND Internal Medicine Nephrology
DX: R00.2 Palpitations (principal); R07.89 Other chest pain; I10 Essential (primary) hypertension; E78.5 Hyperlipidemia, unspecified; I25.10 Atherosclerotic heart disease of native coronary artery without angina pectoris; H40.9 Unspecified glaucoma; E11.51 Type 2 diabetes mellitus with diabetic peripheral angiopathy without gangrene; K21.9 Gastro-esophageal reflux disease without esophagitis; I45.10 Unspecified right bundle-branch block; I45.2 Bifascicular block; E66.9 Obesity, unspecified; Z68.41 Body mass index [BMI] 40.0-44.9, adult; Z79.4 Long term (current) use of insulin; Z95.5 Presence of coronary angioplasty implant and graft; Z79.82 Long term (current) use of aspirin; Z86.73 Personal history of transient ischemic attack (TIA), and cerebral infarction without residual deficits
CPT/HCPCS: 36415; 71045; 80053; 81001; 82550; 82553; 82948; 83615; 83735; 83880; 84443; 84484; 85025; 85027; 85610; 85730; 93005; 99285; G0378

== ENCOUNTER 2017-09-29 10:02 | Inpatient (IN) | payer BC, MEDICARE ==
[2017-09-29] MEDS ORDERED: Vancomycin 1gm in NS 250ml 1 GM/250 ML BAG IVPB STA (11:25)
[2017-09-29] MEDS ORDERED: Piperacill/Tazo 4.5gm in NS 4.5 GM/100 ML BAG IVPB STA (11:25)
--- NOTE | 2017-09-29 11:38 | ED PDOC ---
Arrival/HPI - General Chief Complaint: Abnormal Skin Integrity Time Seen by Provider: 09/29/17 11:18 Historian: Patient - History of Present Illness Narrative History of Present Illness (Text): 09/29/17 11:32 Patient is a 67 year old male with past medical history of HLD, CAD, CVA, left fem-pop bypass, DM, HTN, PAD, GERD, and obesity presents to the Emergency department complaining of left lower abdominal cellulitis associated with fever , headache and nausea since this morning. Patient states he noticed a pimple like growth last night which developed into a rash around the region this morning. Patient informs allergy to IV contrast but denies any contact recently. Patient denies similar symptoms in the past requesting medical evaluation. Patient denies any pain, chills, vomiting, diarrhea, abdominal pain , chest pain, shortness of breath, cough or any other complaints. PMD: Dr. Rowley Time/Duration: 24 hours Symptom Onset: Gradual Symptom Course: Unchanged Activities at Onset: Light Context: Home Past Medical History - Provider Review Nursing Documentation Reviewed: Yes - Past History Past History: No Previous - Infectious Disease Hx of Infectious Diseases: None - Cardiac Hx Cardiac Disorders: Yes (CAD s/p PCI) Hx Hypertension: Yes Other/Comment: hx of left carotid artery occluded no sx as per pt - Pulmonary Hx Respiratory Disorders: No Hx Chronic Obstructive Pulmonary Disease (COPD): No - Neurological Hx Neurological Disorder: Yes HX Cerebrovascular Accident: Yes (L-sided weakness 2004) Other/Comment: left side facial numbness "once and a while" - HEENT Hx HEENT Disorder: Yes (eyeglasses) Hx Blind: No Hx Cataracts: Yes (r eye cataract no sx left eye sx lens replacement) Hx Deafness: No Hx Difficulty Chewing: No Hx Epistaxis: No Hx Glaucoma: Yes Hx Macular Degeneration: No - Renal Hx Renal Disorder: No Hx Renal Failure: No - Endocrine/Metabolic Hx Endocrine Disorders: Yes Hx Diabetes Mellitus Type 2: Yes - Hematological/Oncological Hx Blood Disorders: No - Integumentary Hx Dermatological Disorder: No Hx Basal Cell Carcinoma: No Hx Eczema: No Hx Melanoma: No Hx Psoriasis: No Hx Squamous Cell Carcinoma: No Other/Comment: dry flakey skin both feet +2 edema, no nail to left great toe, small dry .5cm ulcer between 4th and 5th toe left foot. hammertoes 2 3 4 both feet, dry right heel wound 2cm round and dry hard white skin to left heel H/O - Musculoskeletal/Rheumatological Hx Musculoskeletal Disorders: Yes Hx Falls: No Hx Unsteady Gait: Yes - Gastrointestinal Hx Gastrointestinal Disorders: Yes Hx Colostomy: No Hx Crohn's Disease: No Hx Diverticulitis: No Hx Gall Bladder Disease: No Hx Gastroesophageal Reflux: Yes Hx Ileostomy: No Hx Liver Failure: No Hx Pancreatitis: No HX Swallowing Problems: No - Genitourinary/Gynecological Hx Genitourinary Disorders: No Hx Hematuria: No Hx Incontinence: No Hx Prostate Problems: No Hx Sexually Transmitted Diseases: No Hx Urinary Tract Infection: No - Psychiatric Hx Psychophysiologic Disorder: No Hx Anxiety: No Hx Bipolar Disorder: No Hx Depression: No Hx Emotional Abuse: No Hx Hallucinations: No Hx Panic Disorder: No Hx Post Traumatic Stress Disorder: No Hx Psychosis: No Hx Physical Abuse: No Hx Schizophrenia: No Hx Sexual Abuse: No Hx Substance Use: No - Surgical History Hx Amputation: No Hx Appendectomy: No Hx Cardiac Catheterization: No Hx Cholecystectomy: No Hx Coronary Stent: Yes (ptca x1 stent) Hx Gastric Bypass Surgery: No Hx Hysterectomy: No Hx Joint Replacement: No Hx Kidney Transplant: No Hx Liver Transplant: No Hx Mastectomy: No Hx Musculoskeletal Surgery: Yes Hx Open Heart Surgery: No Hx Orthopedic Surgery: No Hx Splenectomy: No Hx Valve Replacement: No Other/Comment: left femoral arterial bypass 02/19/15, femoral angiogram x2, cardiac cath/ptca with 1 stent, right quadricept repair lle, right total hip replacement 10/2013 - Anesthesia Hx Anesthesia: Yes Hx Anesthesia Reactions: No Hx Malignant Hyperthermia: No - Suicidal Assessment Feels Threatened In Home Enviroment: No Family/Social History - Physician Review Nursing Documentation Reviewed: Yes Family/Social History: No Known Family HX Smoking Status: Never Smoked Hx Alcohol Use: Yes (OCAASIONALLY) Hx Substance Use: No Hx Substance Use Treatment: No Allergies/Home Meds Allergies/Adverse Reactions: Allergies Iodine and Iodide Containing Produc Allergy (Verified 09/29/17 15:08) RASH IV contrast Allergy (Uncoded 09/29/17 15:08) RASH Home Medications: Home Meds Medication Instructions Recorded Confirmed Losartan [Cozaar] 50 mg PO QAM 06/30/12 09/29/17 Metformin HCl 1,000 mg PO BID 06/30/12 09/29/17 Ramipril [Altace] 10 mg PO QAM 06/30/12 09/29/17 Rosuvastatin Calcium [Crestor] 20 mg PO DAILY 06/30/12 09/29/17 Timolol Maleate [Timolol GFS 5 ml] 1 drop OU QAM 06/30/12 09/29/17 Clopidogrel [Plavix] 75 mg PO DAILY 12/18/14 09/29/17 Insulin Glargine, Recombina 65 units SC HS 12/17/15 09/29/17 [Lantus] Insulin Lispro [humALOG] 20 units SC .BEFOREMEALS 12/17/15 09/29/17 Lansoprazole [Prevacid] 30 mg PO DAILY 12/17/15 09/29/17 Latanoprost 0.005% Opht [Xalatan 1 drop BOTHEYES DAILY 12/17/15 09/29/17 Opht] Aspirin [Bradley Aspirin] 81 mg PO DAILY 07/07/17 09/29/17 Review of Systems - Review of Systems Constitutional: Fatigue, Fevers Eyes: absent: Vision Changes ENT: absent: Voice Changes, Sore Throat, Sinus Congestion Respiratory: absent: SOB, Cough Cardiovascular: absent: Chest Pain, Edema Gastrointestinal: Nausea. absent: Abdominal Pain, Diarrhea, Vomiting Genitourinary Male: absent: Dysuria, Frequency Musculoskeletal: Myalgias. absent: Arthralgias, Neck Pain, Joint Swelling Skin: Rash, Cellulitis Neurological: Headache. absent: Dizziness, Focal Weakness Endocrine: Diaphoresis. absent: Polyuria, Polydipsia Hemo/Lymphatic: absent: Easy Bruising Psychiatric: absent: Anxiety, Depression Physical Exam - Physical Exam Narrative Physical Exam (Text): 09/29/17 11:40 Head: Atraumatic. Normocephalic. Eyes: PERRL. EOMI. Conjunctivae are not pale. ENT: Mucous membranes are moist and intact. Oropharynx is clear and symmetric. Neck: Supple. Full ROM. No JVD. No lymphadenopathy. No meningeal signs. Cardiovascular: Tachycardic. No murmurs, rubs or gallops. Pulmonary/Chest: No evidence of respiratory distress. Clear to auscultation bilaterally. No wheezing, rales or rhonchi. Abdominal: Obese. Erythema throughout left lower abdominal wall, with NO crepitus or fluctuant masses noted. Erythema throughout abdominal wall extends from mid abdomen to flank to lower inguinal region. Back: No CVA tenderness. No midline tenderness. Extremities: No edema. No cyanosis. No clubbing. Full range of motion in all extremities. No calf tenderness. Genitourinary: no testicular erythema or edema Rectal: no surrounding erythema or masses Skin: Erythema to left lower abdominal wall. No crepitus. Neurological: Alert, awake, and oriented. Motor and sensory exam intact. No meningeal signs. Psychiatric: Good eye contact. Normal interaction, affect, and behavior. Vital Signs Reviewed: Yes Vital Signs Temp Pulse Resp BP Pulse Ox 09/29/17 14:30 98.6 F 85 18 127/68 97 09/29/17 12:51 98.7 F 90 20 121/65 97 09/29/17 10:30 100.1 F H 114 H 18 135/63 98 Temperature: Febrile Blood Pressure: Normal Pulse: Tachycardic Respiratory Rate: Normal Appearance: Positive for: Well-Appearing, Non-Toxic, Comfortable Pain Distress: Mild Mental Status: Positive for: Alert and Oriented X 3 Medical Decision Making ED Course and Treatment: 09/29/17 11:25 Impression: 67 year old male presents to the Emergency department for left lower abdominal cellulitis. Differential Diagnosis included but are not limited to: Cellulitis Plan: -- VBG -- CT of Abdomen/Pelvis -- EKG -- Labs -- Chest X-ray -- IV Fluids -- Tylenol -- Vancomycin -- Blood Culture -- Urine Culture -- Piperacill -- Urinalysis -- Reassess and disposition Prior Visits: Notes and results from previous visits were reviewed. Progress Notes: Patient evaluated by me and after initial evaluation patient's exam I feel is consistent with possible sepsis. Concern that patient describes a "small pimple last night" but currently is febrile with extensive erythema. I do not appreciate any fluctuance or crepitus, although patient with large body habitus. IV fluids 30ml/kg bolus ordered and iv antibiotics ordered after initial evaluation and I initiated immediate consultation with Infectious Disease. Will consult surgery given extent and rapid described progression of erythema. Order CT for further evaluation. 09/29/17 12:28 Chest X-ray reviewed by radiologist, shows no active pulmonary disease. 09/29/17 12:58 CT of Abdomen/Pelvis reviewed by radiologist, shows: No evidence of abdominal wall abscess. Nonobstructing right renal pelvic stone. Surgical team has evaluated patient in ED. Patient with improved tachycardia. BP stable. Patient admitted for abdominal wall cellulitis, r/o sepsis. - Lab Interpretations Lab Results: 09/29/17 12:20 09/29/17 12:20 Lab Results 09/29/17 12:20: Sodium 141, Chloride 102, Potassium 4.6, Carbon Dioxide 25, Anion Gap 19, BUN 21, Creatinine 1.1, Est GFR ( Amer) > 60, Est GFR (Non- Af Amer) > 60, Random Glucose 155 H, Calcium 9.5, Phosphorus 4.0, Magnesium 1.6 L, Total Bilirubin 1.1, AST 26, ALT 33, Alkaline Phosphatase 46, Total Protein 7.8, Albumin 4.7, Globulin 3.1, Albumin/Globulin Ratio 1.5 09/29/17 12:20: pO2 26 L, VBG pH 7.33, VBG pCO2 53.0, VBG HCO3 27.9, VBG Total CO2 29.5 H, VBG O2 Sat (Calc) 51.0, VBG Base Excess 1.0, VBG Potassium 4.8, Sodium 137.0, Chloride 103.0, Glucose 166 H, Lactate 1.9, FiO2 21.0, Venous Blood Potassium 4.8 09/29/17 12:20: PT 12.3, INR 1.07, APTT 26.8 09/29/17 12:20: WBC 17.4 H D, RBC 5.30, Hgb 14.6, Hct 43.9, MCV 82.8, MCH 27.5, MCHC 33.3, RDW 14.3, Plt Count 244, MPV 10.2, Gran % 86.1 H, Lymph % (Auto) 6.6 L, [place] % (Auto) 7.2 H, Eos % (Auto) 0.0 L, Baso % (Auto) 0.1, Gran # 15.01 H, Lymph # (Auto) 1.2, [place] # (Auto) 1.3 H, Eos # (Auto) 0.0, Baso # (Auto) 0.02 09/29/17 12:00: C-Reactive Protein 65.80 H - RAD Interpretation Radiology Orders: 09/29/17 11:25 CHEST PORTABLE [RAD] Stat 09/29/17 11:31 ABD & PELVIS W/O PO OR IV CONT [CT] Stat Hunter: Radiologist - Medication Orders Current Medication Orders: Acetaminophen (Tylenol 325mg Tab) 975 mg PO ONCE PRN PRN Reason: Fever >100.4 F Last Admin: 09/29/17 12:42 Dose: 975 mg [facility] Pain/Vitals Document 09/29/17 12:42 OCS (Rec: 09/29/17 12:42 OCS [id number]) Pain Reassessment Is This A Pain ReAssessment? Yes Sleep Is patient sleeping during reassessment? No Presence of Pain Presence of Pain Yes Pain Scale Used Pain Scale Used Numeric Location Pain Location Body Quality Assurance Advisor Description Constant Intensity 5 Scale Used Numeric Re-Assess: [facility] Pain/Vitals Document 09/29/17 13:42 CD (Rec: 09/29/17 15:05 CD [id number]) Pain Reassessment Is This A Pain ReAssessment? Yes Presence of Pain Presence of Pain No Acetaminophen (Tylenol 325mg Tab) 650 mg PO Q6H PRN PRN Reason: Fever >100.4 F Acetaminophen (Tylenol 325mg Tab) 650 mg PO Q6H PRN PRN Reason: Pain, moderate (4-7) Last Admin: 09/29/17 17:35 Dose: 650 mg [facility] Pain/Vitals Document 09/29/17 17:35 CD (Rec: 09/29/17 17:36 CD [id number]) Presence of Pain Presence of Pain Yes Pain Scale Used Pain Scale Used Numeric Location Pain Location Body Quality Assurance Advisor Description Throbbing Intensity 7 Re-Assess: [facility] Pain/Vitals Document 09/29/17 18:35 CD (Rec: 09/29/17 18:52 CD [id number]) Pain Reassessment Is This A Pain ReAssessment? Yes Presence of Pain Presence of Pain No Aspirin (Aspirin Chewable) 81 mg PO DAILY [facility] Atorvastatin Calcium (Lipitor) 80 mg PO HS ALFREDO Last Admin: 09/29/17 21:18 Dose: 80 mg Clopidogrel Bisulfate (Plavix) 75 mg PO DAILY [facility] Enoxaparin Sodium (Lovenox) 40 mg SC DAILY ALFREDO PRN Reason: Protocol Piperacillin Sod/Tazobactam Sod (Zosyn 3.375 In Ns 100ml) 100 mls @ 200 mls/hr IVPB Q6 ALFREDO PRN Reason: Protocol Stop: 10/06/17 18:01 Last Admin: 09/29/17 23:14 Dose: 200 mls/hr eMAR Start Stop Document 09/29/17 23:14 ST (Rec: 09/29/17 23:14 ST [id number]) Intravenous Solution Start Date 09/29/17 Start Time 23:14 End Date 09/29/17 End time 23:50 Total Infusion Time 36 Vancomycin HCl (Vancomycin 1gm) 1 gm in 250 mls @ 167 mls/hr IVPB Q12 ALFREDO PRN Reason: Protocol Last Admin: 09/29/17 21:18 Dose: 167 mls/hr eMAR Start Stop Document 09/29/17 21:18 ST (Rec: 09/29/17 21:18 ST [id number]) Intravenous Solution Start Date 09/29/17 Start Time 21:18 End Date 09/29/17 End time 23:30 Total Infusion Time 132 Insulin Detemir (Levemir) 65 unit SC HS [facility] Last Admin: 09/29/17 21:24 Dose: Not Given Non-Admin Reason: Blood Sugar Parameter MAR Blood Glucose Document 09/29/17 21:24 ST (Rec: 09/29/17 21:25 ST [id number]) Blood Glucose Finger Stick Blood Glucose (70-120) 158 Insulin Human Lispro (Humalog Med) 0 units SC ACHS [facility] PRN Reason: Protocol Last Admin: 09/29/17 21:24 Dose: Not Given Non-Admin Reason: Blood Sugar Parameter MAR Blood Glucose Document 09/29/17 21:24 ST (Rec: 09/29/17 21:25 ST [id number]) Blood Glucose Finger Stick Blood Glucose (70-120) 158 Latanoprost (Xalatan Opht) 0 ml OU HS [facility] Last Admin: 09/29/17 21:18 Dose: 2.5 ml Losartan Potassium (Cozaar) 50 mg PO QAM [facility] Magnesium Oxide (Mag-Ox) 400 mg PO BID [facility] Last Admin: 09/29/17 17:05 Dose: 400 mg Non-Formulary Medication (Carvedilol [Coreg Cr]) 10 mg PO QAM [facility] Pantoprazole Sodium (Protonix Inj) 40 mg IVP DAILY ALFREDO Ramipril (Altace) 10 mg PO QAM ALFREDO Timolol Maleate (Timoptic-Xe 0.5% Opht Gel) 1 drop OU QAM ALFREDO Discontinued Medications Lactated Ringer's 2,720 ml/ IV (SUPPLIES) 2,720 mls @ 5,443.08 mls/hr IV ONCE ONE PRN Reason: 60 ML/KG/HR Stop: 09/29/17 11:26 Last Admin: 09/29/17 12:17 Dose: 5,443.08 mls/hr eMAR Start Stop Document 09/29/17 12:17 OCS (Rec: 09/29/17 12:46 OCS [id number]) Intravenous Solution Start Date 09/29/17 Start Time 12:17 End Date 09/29/17 End time 12:47 Total Infusion Time 30 Vancomycin HCl (Vancomycin 1gm) 1 gm in 250 mls @ 167 mls/hr IVPB STAT STA PRN Reason: Protocol Stop: 09/29/17 12:54 Last Admin: 09/29/17 12:48 Dose: 167 mls/hr eMAR Start Stop Document 09/29/17 12:48 OCS (Rec: 09/29/17 12:49 OCS [id number]) Intravenous Solution Start Date 09/29/17 Start Time 12:48 End Date 09/29/17 End time 14:18 Total Infusion Time 90 Piperacillin Sod/Tazobactam Sod (Zosyn 4.5 Gm In Ns 100ml) 4.5 gm in 100 mls @ 200 mls/hr IVPB STAT STA PRN Reason: Protocol Stop: 09/29/17 11:54 Last Admin: 09/29/17 12:16 Dose: 200 mls/hr eMAR Start Stop Document 09/29/17 12:16 OCS (Rec: 09/29/17 12:41 OCS [id number]) Intravenous Solution Start Date 09/29/17 Start Time 12:16 End Date 09/29/17 End time 12:46 Total Infusion Time 30 Vancomycin HCl (Vancomycin 1gm) 1 gm in 250 mls @ 167 mls/hr IVPB DAILY ALFREDO PRN Reason: Protocol Pneumococcal Polyvalent Vaccine (Pneumovax 23 Vaccine) 0.5 ml IM .ONCE ONE Stop: 07/12/18 17:53 Last Admin: 09/30/17 01:01 Dose: Immunization Registry Document 09/30/17 01:01 ST (Rec: 09/30/17 01:01 [id number]) Immunization Registry Consent Date 09/29/17 - Scribe Statement The provider has reviewed the documentation as recorded by the Scribe Daniel Aguilar. All medical record entries made by the Scribe were at my direction and personally dictated by me. I have reviewed the chart and agree that the record accurately reflects my personal performance of the history, physical exam, medical decision making, and the department course for this patient. I have also personally directed, reviewed, and agree with the discharge instructions and disposition. Disposition/Present on Arrival - Present on Arrival Any Indicators Present on Arrival: No History of DVT/PE: No History of Uncontrolled Diabetes: No Urinary Catheter: No History of Decub. Ulcer: No History Surgical Site Infection Following: None - Disposition Have Diagnosis and Disposition been Completed?: Yes Diagnosis: Cellulitis, Fever, Leukocytosis Disposition: HOSPITALIZED Disposition Time: 12:15 Patient Plan: Admission Condition: SERIOUS
--- NOTE | 2017-09-29 12:11 | RAD ---
Date of service: 09/29/2017 HISTORY: Sepsis Patient COMPARISON: 07/07/2017. FINDINGS: LUNGS: The lungs are well inflated and clear. PLEURA: No significant pleural effusion identified, no pneumothorax apparent. CARDIOVASCULAR: Normal. OSSEOUS STRUCTURES: No significant abnormalities. VISUALIZED UPPER ABDOMEN: Normal. OTHER FINDINGS: None. IMPRESSION: No active pulmonary disease.
[2017-09-29 12:38] LABS: BASO # 0.02 K/mm3 (0.0-2.0); BASO % 0.1 % (0.0-3.0); GRAN # 15.01 (1.4-6.5); GRAN % 86.1 % (50.0-68.0); HEMOGLOBIN 14.6 g/dL (14.0-18.0); LYMPH # 1.2 (1.2-3.4); LYMPH % 6.6 % (22.0-35.0); MEAN CELL VOLUME 82.8 fl (80.0-105.0); MEAN CORPUSCULAR HEMOGLOBIN 27.5 pg (25.0-35.0); MEAN CORPUSCULAR HGB CONC 33.3 g/dl (31.0-37.0); MEAN PLATELET VOLUME 10.2 fl (7.0-11.0); MONO # 1.3 (0.1-0.6); MONO % 7.2 % (1.0-6.0); RBC 5.3 10^6/uL (3.5-6.1); RED CELL DISTRIBUTION WIDTH 14.3 % (11.5-14.5); WHITE BLOOD COUNT 17.4 10^3/ul (4.5-11.0)
[2017-09-29 12:39] LABS: VENOUS BLOOD GAS PO2 26 mm/Hg (30-55); VENOUS BLOOD PH 7.33 (7.32-7.43)
[2017-09-29 12:48] LABS: ALB/GLOB RATIO 1.5 (1.1-1.8); ALBUMIN 4.7 g/dL (3.0-4.8); ALT/SGPT 33 U/L (7-56); AST/SGOT 26 U/L (17-59); BLOOD UREA NITROGEN 21 mg/dL (7-21); CALCIUM 9.5 mg/dL (8.4-10.5); GFR AFRICAN-AMERICAN > 60; GFR NON-AFRICAN AMERICAN > 60
--- NOTE | 2017-09-29 12:48 | CT ---
Date of service: 09/29/2017 PROCEDURE: CT Abdomen and Pelvis without intravenous contrast HISTORY: lower abdominal wall cellulitis/r/o abscess COMPARISON: CT 05/16/2015 TECHNIQUE: Without contrast.. Contrast dose: Radiation dose: Total exam DLP = 1563 mGy-cm. This CT exam was performed using one or more of the following dose reduction techniques: Automated exposure control, adjustment of the mA and/or kV according to patient size, and/or use of iterative reconstruction technique. FINDINGS: LOWER THORAX: Unremarkable. LIVER: Unremarkable. No gross lesion or ductal dilatation. GALLBLADDER AND BILE DUCTS: Unremarkable. PANCREAS: Unremarkable. No gross lesion or ductal dilatation. SPLEEN: Unremarkable. ADRENALS: Unremarkable. No mass. KIDNEYS AND URETERS: There is a stone in the right renal pelvis measuring 10 mm diameter and 3 mm in thickness. This was not present on the previous exam. VASCULATURE: Unremarkable. No aortic aneurysm. BOWEL: Unremarkable. No obstruction. No gross mural thickening. APPENDIX: Unremarkable. Normal appendix. PERITONEUM: Unremarkable. No free fluid. No free air. LYMPH NODES: Unremarkable. No enlarged lymph nodes. BLADDER: Unremarkable. REPRODUCTIVE: Unremarkable. BONES: No acute fracture. OTHER FINDINGS: None. IMPRESSION: No evidence of abdominal wall abscess. Nonobstructing right renal pelvic stone.
[2017-09-29 12:52] LABS: INR 1.07 (0.93-1.08); PARTIAL THROMBOPLASTIN TIME 26.8 Seconds (25.1-36.5); PROTHROMBIN TIME 12.3 SECONDS (9.4-12.5)
--- NOTE | 2017-09-29 13:45 | CP.PCM.CON ---
History of Present Illness - History of Present Illness History of Present Illness: Surgery Consult: Dr. Leonard Pt is a 67M with PMHx significant for DM, HTN, HLD, PAD s/p fem-pop bypass, CAD with stents, CVA & obesity who presents to [facility] with complaints of redness around his left lower abdomen. Pt states that he noticed a small pimple in his LLQ yesterday that slowly increased in redness with erythema spreading to the entire left half of his abdomen. He also admits to having subjective fevers/ chills overnight & this morning when his redness didn't seem better he decided to come to the hospital. He denies ever having this problem in the past. In the ER, pt had a CT abdomen/pelvis, due to concern for necrotizing fasciitis & surgery was consulted. Currently, pt is resting comfortably in his bed. He states he doesn't have any abdominal pain & denies any drainage from the site of the pimple. He denies other associated symptoms. Denies N/V, F/C, chest pain or SOB. PMHx: as stated above PSHx: L fem-pop bypass, hematoma evacuation s/p bypass, R hip replacement SocialHx: denies smoking, EtOH/drugs ALL: iodine Review of Systems - Review of Systems All systems: reviewed and no additional remarkable complaints except Past Patient History - Infectious Disease Hx of Infectious Diseases: None - Past Social History Smoking Status: Never Smoked - CARDIAC Hx Cardiac Disorders: Yes (CAD s/p PCI) Hx Hypertension: Yes Other/Comment: hx of left carotid artery occluded no sx as per pt - PULMONARY Hx Respiratory Disorders: No Hx Chronic Obstructive Pulmonary Disease (COPD): No - NEUROLOGICAL Hx Neurological Disorder: Yes HX Cerebrovascular Accident: Yes (L-sided weakness 2004) Other/Comment: left side facial numbness "once and a while" - HEENT Hx HEENT Problems: Yes (eyeglasses) Hx Blind: No Hx Cataracts: Yes (r eye cataract no sx left eye sx lens replacement) Hx Deafness: No Hx Difficulty Chewing: No Hx Epistaxis: No Hx Glaucoma: Yes Hx Macular Degeneration: No - RENAL Hx Chronic Kidney Disease: No Hx Renal Failure: No - ENDOCRINE/METABOLIC Hx Endocrine Disorders: Yes Hx Diabetes Mellitus Type 2: Yes - HEMATOLOGICAL/ONCOLOGICAL Hx Blood Disorders: No - INTEGUMENTARY Hx Dermatological Problems: No Hx Basil Cell: No Hx Eczema: No Hx Melanoma: No Hx Psoriasis: No Hx Squamous Cell: No - MUSCULOSKELETAL/RHEUMATOLOGICAL Hx Musculoskeletal Disorders: Yes Hx Falls: No - GASTROINTESTINAL Hx Gastrointestinal Disorders: Yes Hx Colostomy: No Hx Crohn's Disease: No Hx Diverticulitis: No Hx Gall Bladder Disease: No Hx Gastroesophageal Reflux: Yes Hx Ileostomy: No Hx Liver Failure: No Hx Pancreatitis: No HX Swallowing Problems: No - GENITOURINARY/GYNECOLOGICAL Hx Genitourinary Disorders: No Hx Hematuria: No Hx Incontinence: No Hx Prostate Problems: No Hx Sexually Transmitted Disorders: No Hx Urinary Tract Infection: No - PSYCHIATRIC Hx Psychophysiologic Disorder: No Hx Anxiety: No Hx Bipolar Disorder: No Hx Depression: No Hx Emotional Abuse: No Hx Hallucinations: No Hx Panic Symptoms: No Hx Post Traumatic Stress Disorder: No Hx Psychosis: No Hx Physical Abuse: No Hx Schizophrenia: No Hx Sexual Abuse: No Hx Substance Use: No - SURGICAL HISTORY Hx Surgeries: Yes Hx Amputation: No Hx Appendectomy: No Hx Cardiac Catheterization: No Hx Cholecystectomy: No Hx Coronary Stent: Yes Hx Gastric Bypass Surgery: No Hx Hysterectomy: No Hx Joint Replacement: No Hx Kidney Transplant: No Hx Liver Transplant: No Hx Mastectomy: No Hx Musculoskeletal Surgery: Yes Hx Open Heart Surgery: No Hx Orthopedic Surgery: No Hx Splenectomy: No Hx Valve Replacement: No Other/Comment: left femoral arterial bypass 02/19/15, femoral angiogram x2, cardiac cath/ptca with 1 stent, right quadricept repair lle, right total hip replacement 10/2013 - ANESTHESIA Hx Anesthesia: Yes Hx Anesthesia Reactions: No Hx Malignant Hyperthermia: No Meds Allergies/Adverse Reactions: Allergies Allergy/AdvReac Type Severity Reaction Status Date / Time Iodine and Iodide Containing Allergy RASH Verified 09/29/17 10:54 Produc IV contrast Allergy RASH Uncoded 07/07/17 11:32 - Medications Medications: Current Medications Acetaminophen (Tylenol 325mg Tab) 975 mg PO ONCE PRN PRN Reason: Fever >100.4 F Last Admin: 09/29/17 12:42 Dose: 975 mg Physical Exam - Constitutional Appears: No Acute Distress - Head Exam Head Exam: ATRAUMATIC, NORMOCEPHALIC - Eye Exam Eye Exam: Normal appearance - ENT Exam ENT Exam: Mucous Membranes Moist - Respiratory Exam Respiratory Exam: NORMAL BREATHING PATTERN - Cardiovascular Exam Cardiovascular Exam: Tachycardia - GI/Abdominal Exam GI & Abdominal Exam: Soft. absent: Distended, Guarding, Rebound, Tenderness Additional comments: erythema/cellulitis extending from the LLQ spreading superiorly near the umbilicus, small pinpoint area under pannus with minimal drainage. No crepitus or fluctuance noted - Neurological Exam Neurological exam: Alert, Oriented x3 - Skin Skin Exam: Dry, Warm Results - Vital Signs Recent Vital Signs: Last Vital Signs Temp 98.7 F 09/29/17 12:51 Pulse 90 09/29/17 12:51 Resp 20 09/29/17 12:51 BP 121/65 09/29/17 12:51 Pulse Ox 97 09/29/17 12:51 - Labs Result Diagrams: 09/29/17 12:20 09/29/17 12:20 - Imaging and Cardiology CT scan - abdomen Status: Image reviewed by me, Report reviewed by me Assessment & Plan - Assessment and Plan (Free Text) Assessment: 67M with cellulitis of left lower abdominal wall Plan: - CT scan does not show any evidence of necrotizing infection - continue IV ABX - f/u ID recs - no plan for surgical intervention at this time - d/w Dr. Horacio Phillips
[2017-09-29 15:31] LABS: URINE BILIRUBIN NEGATIVE (NEGATIVE); URINE BLOOD NEGATIVE (NEGATIVE); URINE GLUCOSE (UA) NEGATIVE (NEGATIVE); URINE LEUKOCYTE ESTERASE NEGATIVE Leu/uL (NEGATIVE); URINE PROTEIN 30 mg/dL (<30 mg/dL); URINE UROBILINOGEN 0.2 E.U./dL (<1 E.U./dL)
[2017-09-29 15:33] LABS: URINE APPEARANCE CLEAR (CLEAR); URINE COLOR LIGHT YELLOW (YELLOW)
[2017-09-29 15:36] LABS: URINE BACTERIA NEG (NEG); URINE RBC 0 - 2 /hpf (0-2); URINE WBC NEGATIVE /hpf (0-6)
[2017-09-29] MEDS: Insulin Lispro (humaLOG) MEDIUM Coverage SC SCH ×2 (16:36→21:24)
--- NOTE | 2017-09-29 16:48 | CP.PCM.HP ---
<Cristofer Villa - Last Filed: 09/29/17 17:18> History of Present Illness - History of Present Illness History of Present Illness: Medicine H&P for Dr. Rowley's service - Hortencia Villa PGY3 HPI: Patient is a 67yo male with past medical history of DM type 2, HTN, HLD, PAD s/p fem-pop bypass, CAD with stents, CVA & obesity who presented to [facility] with c/o abdominal rash. He reported having a small pimple in the left lower quadrant of his abdomen the day prior. He reported applying some antibiotic ointment onto the region and a bandaid and woke up the following morning to discover an extensive erythematous rash spreading throughout the left half of his abdomen. He also admitted to having subjective fevers and chills. He went to see his PMD this morning who evaluated and instructed him to go to the emergency room. He denies ever having this problem in the past. He also denied trauma, sick contacts, recent travel, cough, focal weakness, numbness, tingling, abdominal pain, nausea, vomiting, chest pain, palpitations, SOB, dysuria, frequency, urgency, bowel/bladder problems. In the ER, CT abdomen/ pelvis revealed no evidence of abdominal wall abscess or acute abdominal pathology. CXR revealed no active disease. 12point ROS as per above otherwise negative PMHx: as stated above PSHx: L fem-pop bypass, hematoma evacuation s/p bypass, R hip replacement Allergies: Iodine contrast Social Hx: Denies tobacco, alcohol and illicit drug use Family Hx: reviewed, non-contributory PMD: Dr. Flores Present on Admission - Present on Admission Any Indicators Present on Admission: No Past Patient History - Infectious Disease Hx of Infectious Diseases: None - Past Social History Smoking Status: Never Smoked - CARDIAC Hx Cardiac Disorders: Yes (CAD s/p PCI) Hx Hypertension: Yes Other/Comment: hx of left carotid artery occluded no sx as per pt - PULMONARY Hx Respiratory Disorders: No Hx Chronic Obstructive Pulmonary Disease (COPD): No - NEUROLOGICAL Hx Neurological Disorder: Yes HX Cerebrovascular Accident: Yes (L-sided weakness 2004) Other/Comment: left side facial numbness "once and a while" - HEENT Hx HEENT Problems: Yes (eyeglasses) Hx Blind: No Hx Cataracts: Yes (r eye cataract no sx left eye sx lens replacement) Hx Deafness: No Hx Difficulty Chewing: No Hx Epistaxis: No Hx Glaucoma: Yes Hx Macular Degeneration: No - RENAL Hx Chronic Kidney Disease: No Hx Renal Failure: No - ENDOCRINE/METABOLIC Hx Endocrine Disorders: Yes Hx Diabetes Mellitus Type 2: Yes - HEMATOLOGICAL/ONCOLOGICAL Hx Blood Disorders: No - INTEGUMENTARY Hx Dermatological Problems: No Hx Basil Cell: No Hx Eczema: No Hx Melanoma: No Hx Psoriasis: No Hx Squamous Cell: No - MUSCULOSKELETAL/RHEUMATOLOGICAL Hx Musculoskeletal Disorders: Yes Hx Falls: No - GASTROINTESTINAL Hx Gastrointestinal Disorders: Yes Hx Colostomy: No Hx Crohn's Disease: No Hx Diverticulitis: No Hx Gall Bladder Disease: No Hx Gastroesophageal Reflux: Yes Hx Ileostomy: No Hx Liver Failure: No Hx Pancreatitis: No HX Swallowing Problems: No - GENITOURINARY/GYNECOLOGICAL Hx Genitourinary Disorders: No Hx Hematuria: No Hx Incontinence: No Hx Prostate Problems: No Hx Sexually Transmitted Disorders: No Hx Urinary Tract Infection: No - PSYCHIATRIC Hx Psychophysiologic Disorder: No Hx Anxiety: No Hx Bipolar Disorder: No Hx Depression: No Hx Emotional Abuse: No Hx Hallucinations: No Hx Panic Symptoms: No Hx Post Traumatic Stress Disorder: No Hx Psychosis: No Hx Physical Abuse: No Hx Schizophrenia: No Hx Sexual Abuse: No Hx Substance Use: No - SURGICAL HISTORY Hx Surgeries: Yes Hx Amputation: No Hx Appendectomy: No Hx Cardiac Catheterization: No Hx Cholecystectomy: No Hx Coronary Stent: Yes Hx Gastric Bypass Surgery: No Hx Hysterectomy: No Hx Joint Replacement: No Hx Kidney Transplant: No Hx Liver Transplant: No Hx Mastectomy: No Hx Musculoskeletal Surgery: Yes Hx Open Heart Surgery: No Hx Orthopedic Surgery: No Hx Splenectomy: No Hx Valve Replacement: No Other/Comment: left femoral arterial bypass 02/19/15, femoral angiogram x2, cardiac cath/ptca with 1 stent, right quadricept repair lle, right total hip replacement 10/2013 - ANESTHESIA Hx Anesthesia: Yes Hx Anesthesia Reactions: No Hx Malignant Hyperthermia: No Meds Allergies/Adverse Reactions: Allergies Allergy/AdvReac Type Severity Reaction Status Date / Time Iodine and Iodide Containing Allergy RASH Verified 09/29/17 15:08 Produc IV contrast Allergy RASH Uncoded 09/29/17 15:08 Physical Exam - Constitutional Appears: Non-toxic, No Acute Distress - Head Exam Head Exam: ATRAUMATIC, NORMAL INSPECTION, NORMOCEPHALIC - Eye Exam Eye Exam: EOMI Pupil Exam: PERRL - ENT Exam ENT Exam: Mucous Membranes Moist - Neck Exam Neck exam: Positive for: Normal Inspection - Respiratory Exam Respiratory Exam: Clear to Auscultation Bilateral. absent: Rales, Rhonchi, Wheezes - Cardiovascular Exam Cardiovascular Exam: RRR, +S1, +S2. absent: Clicks, Gallop, JVD, Rubs - GI/Abdominal Exam GI & Abdominal Exam: Soft. absent: Distended, Guarding, Rigid, Tenderness Additional comments: extensive non-blanching erythematous rash extending from the left lower abdominal quadrant to mid-abdomen; no crepitus or fluctuant masses on examination - Extremities Exam Extremities exam: Positive for: normal inspection. Negative for: pedal edema - Neurological Exam Neurological exam: Alert, CN II-XII Intact, Oriented x3 - Psychiatric Exam Psychiatric exam: Normal Affect, Normal Mood - Skin Skin Exam: Dry, Erythema, Intact, Warm Results - Vital Signs Recent Vital Signs: Last Vital Signs Temp 98.7 F 09/29/17 14:41 Pulse 90 09/29/17 14:41 Resp 20 09/29/17 14:41 BP 121/65 09/29/17 14:41 Pulse Ox 97 09/29/17 14:41 - Labs Result Diagrams: 09/29/17 12:20 09/29/17 12:20 Labs: Laboratory Results - last 24 hr 09/29/17 09/29/17 09/29/17 15:03 15:47 15:50 POC Glucose (mg/dL) 114 H Lactic Acid 1.5 Urine Color Light yellow Urine Appearance Clear Urine pH 6.0 Ur Specific [place] 1.020 Urine Protein 30 H Urine Glucose (UA) Negative Urine Ketones Negative Urine Blood Negative Urine Nitrate Negative Urine Bilirubin Negative Urine Urobilinogen 0.2 Ur Leukocyte Esterase Negative Urine RBC 0 - 2 Urine WBC Negative Ur Epithelial Cells None Urine Bacteria Neg Assessment & Plan - Assessment and Plan (Free Text) Plan: 67yo male with history of CAD, DM type 2, PAD, HTN, HLD, obesity presents with abdominal wall cellulitis 1. Abdominal wall cellulitis 2. DM type 2 3. CAD with stenting 4. PAD 5. Hypertension 6. Hyperlipidemia 7. Obesity -Patient given IVF bolus in the ED and started on broad-spectrum antibiotics. ID has been consulted and will continue with zosyn and vancomycin pending cultures. -Procalcitonin and cultures are pending -Tylenol PRN for fevers -Abdominal/Pelvis CT was reviewed and revealed no acute abdominal pathology -Surgery consulted for evaluation -He is on insulin sliding scale and levemir with fingerstick coverage for his diabetes, A1C is pending to evaluate glycemic control -He is on aspirin/plavix for his CAD/PAD, lipitor for hyperlipidemia, losartan for hypertension -Consistent carb diet -Lovenox SC for DVT prophylaxis Patient seen and case discussed/reviewed with attending, Dr. Rowley <Feliz Rowley - Last Filed: 09/30/17 19:59> Results - Vital Signs Recent Vital Signs: Last Vital Signs Temp 98.9 F 09/30/17 17:09 Pulse 88 09/30/17 17:09 Resp 16 09/30/17 17:09 BP 138/65 09/30/17 17:09 Pulse Ox 97 09/30/17 17:09 - Labs Result Diagrams: 09/30/17 04:10 09/30/17 04:10 Labs: Laboratory Results - last 24 hr 09/29/17 09/29/17 09/29/17 15:47 15:47 21:21 WBC RBC Hgb Hct MCV MCH MCHC RDW Plt Count MPV Gran % Lymph % (Auto) [place] % (Auto) Eos % (Auto) Baso % (Auto) Gran # Lymph # (Auto) [place] # (Auto) Eos # (Auto) Baso # (Auto) Sodium Potassium Chloride Carbon Dioxide Anion Gap BUN Creatinine Est GFR ( Amer) Est GFR (Non-Af Amer) POC Glucose (mg/dL) 158 H Random Glucose Hemoglobin A1c 6.1 Calcium Phosphorus Magnesium Total Bilirubin AST ALT Alkaline Phosphatase Total Protein Albumin Globulin Albumin/Globulin Ratio Procalcitonin 0.14 L 09/30/17 09/30/17 09/30/17 04:10 04:10 07:24 WBC 11.4 H D RBC 4.65 Hgb 12.8 L Hct 38.7 L MCV 83.2 MCH 27.5 MCHC 33.1 RDW 14.7 H Plt Count 213 MPV 9.8 Gran % 76.7 H Lymph % (Auto) 11.0 L [place] % (Auto) 11.1 H Eos % (Auto) 1.0 L Baso % (Auto) 0.2 Gran # 8.76 H Lymph # (Auto) 1.3 [place] # (Auto) 1.3 H Eos # (Auto) 0.1 Baso # (Auto) 0.02 Sodium 140 Potassium 4.2 Chloride 102 Carbon Dioxide 28 Anion Gap 15 BUN 16 Creatinine 1.0 Est GFR ( Amer) > 60 Est GFR (Non-Af Amer) > 60 POC Glucose (mg/dL) 139 H Random Glucose 152 H Hemoglobin A1c Calcium 8.6 Phosphorus 3.1 Magnesium 1.6 L Total Bilirubin 0.8 AST 26 ALT 30 Alkaline Phosphatase 37 L Total Protein 6.4 Albumin 3.7 Globulin 2.6 Albumin/Globulin Ratio 1.4 Procalcitonin 09/30/17 09/30/17 10:48 16:28 WBC RBC Hgb Hct MCV MCH MCHC RDW Plt Count MPV Gran % Lymph % (Auto) [place] % (Auto) Eos % (Auto) Baso % (Auto) Gran # Lymph # (Auto) [place] # (Auto) Eos # (Auto) Baso # (Auto) Sodium Potassium Chloride Carbon Dioxide Anion Gap BUN Creatinine Est GFR ( Amer) Est GFR (Non-Af Amer) POC Glucose (mg/dL) 191 H 213 H Random Glucose Hemoglobin A1c Calcium Phosphorus Magnesium Total Bilirubin AST ALT Alkaline Phosphatase Total Protein Albumin Globulin Albumin/Globulin Ratio Procalcitonin Assessment & Plan - Assessment and Plan (Free Text) Plan: Pt seen and examined. I have reviewed the note of the medical administrative and agree with it. I have discussed the assessment and plan with the resident. I have reviewed the patient's labs and medications. Pt with cellulitis and is on Abx. The erythema is mildly improved according to surgery. I spoke to the resident. ID following and I appreciate the input. BP controlled with Losartan. On ISS for Dm-2. Will D/C tele.
[2017-09-29] MEDS: Magnesium Oxide 400 mg Tab UD PO SCH (17:05)
[2017-09-29] MEDS: Piperacillin/Tazobact 3.375 gm 100 ML IVPB SCH ×2 (17:05→23:14)
[2017-09-29 17:52] VITALS: BMI 27.8
[2017-09-29] MEDS ORDERED: Pneumococcal 23-Valent Vaccine IM ONE (17:52)
--- NOTE | 2017-09-29 19:33 | CARD ---
APPROVED REPORT Date of service: 09/29/2017 EKG Measurement Heart [id number] <Conclusion> Normal sinus rhythm Left axis deviation Right bundle branch block Inferior infarct, age undetermined Abnormal ECG
[2017-09-29] MEDS: Latanoprost 2.5 ml Opht Soln OU SCH (21:18)
[2017-09-29] MEDS: Vancomycin 1gm in NS 250ml 1 GM/250 ML BAG IVPB SCH (21:18)
[2017-09-29] MEDS: Insulin Detemir 100 units/ml Vial (Levemir) SC SCH (21:24)
[2017-09-30 04:20] LABS: BASO # 0.02 K/mm3 (0.0-2.0); BASO % 0.2 % (0.0-3.0); EOS # 0.1 (0.0-0.7); GRAN # 8.76 (1.4-6.5); GRAN % 76.7 % (50.0-68.0); HEMOGLOBIN 12.8 g/dL (14.0-18.0); LYMPH # 1.3 (1.2-3.4); MEAN CELL VOLUME 83.2 fl (80.0-105.0); MEAN CORPUSCULAR HEMOGLOBIN 27.5 pg (25.0-35.0); MEAN CORPUSCULAR HGB CONC 33.1 g/dl (31.0-37.0); MEAN PLATELET VOLUME 9.8 fl (7.0-11.0); MONO # 1.3 (0.1-0.6); MONO % 11.1 % (1.0-6.0); RBC 4.65 10^6/uL (3.5-6.1); RED CELL DISTRIBUTION WIDTH 14.7 % (11.5-14.5); WHITE BLOOD COUNT 11.4 10^3/ul (4.5-11.0)
[2017-09-30] MEDS: Piperacillin/Tazobact 3.375 gm 100 ML IVPB SCH ×4 (05:13→23:46)
[2017-09-30 06:47] LABS: ALB/GLOB RATIO 1.4 (1.1-1.8); ALBUMIN 3.7 g/dL (3.0-4.8); ALT/SGPT 30 U/L (7-56); AST/SGOT 26 U/L (17-59); BLOOD UREA NITROGEN 16 mg/dL (7-21); CALCIUM 8.6 mg/dL (8.4-10.5); GFR AFRICAN-AMERICAN > 60; GFR NON-AFRICAN AMERICAN > 60
--- NOTE | 2017-09-30 07:56 | CP.PCM.PN ---
<Cristofer Villa - Last Filed: 09/30/17 07:57> Subjective - Date & Time of Evaluation Date of Evaluation: 09/30/17 Time of Evaluation: 07:53 - Subjective Subjective: Medicine progress note for Dr. Rowley's service - Hortencia Villa PGY3 Patient seen and examined at bedside this morning. No acute overnight events or new complaints reported. Denies fever, chills. Discussed current workup/plan with the patient. We will continue with IV abx pending clinical improvement/ cultures Objective - Vital Signs/Intake and Output Vital Signs (last 24 hours): Temp Pulse Resp BP Pulse Ox 99.4 F 85 20 140/72 96 09/30/17 05:48 09/30/17 05:48 09/30/17 05:48 09/30/17 05:48 09/30/17 05:48 Intake and Output: 09/30/17 09/30/17 06:59 18:59 Intake Total 810 Output Total 1000 Balance -190 - Medications Medications: Current Medications Acetaminophen (Tylenol 325mg Tab) 975 mg PO ONCE PRN PRN Reason: Fever >100.4 F Last Admin: 09/29/17 12:42 Dose: 975 mg Acetaminophen (Tylenol 325mg Tab) 650 mg PO Q6H PRN PRN Reason: Fever >100.4 F Acetaminophen (Tylenol 325mg Tab) 650 mg PO Q6H PRN PRN Reason: Pain, moderate (4-7) Last Admin: 09/29/17 17:35 Dose: 650 mg Aspirin (Aspirin Chewable) 81 mg PO DAILY [facility] Atorvastatin Calcium (Lipitor) 80 mg PO HS [facility] Last Admin: 09/29/17 21:18 Dose: 80 mg Clopidogrel Bisulfate (Plavix) 75 mg PO DAILY [facility] Enoxaparin Sodium (Lovenox) 40 mg SC DAILY [facility] PRN Reason: Protocol Piperacillin Sod/Tazobactam Sod (Zosyn 3.375 In Ns 100ml) 100 mls @ 200 mls/hr IVPB Q6 [facility] PRN Reason: Protocol Stop: 10/06/17 18:01 Last Admin: 09/30/17 05:13 Dose: 200 mls/hr Vancomycin HCl (Vancomycin 1gm) 1 gm in 250 mls @ 167 mls/hr IVPB Q12 [facility] PRN Reason: Protocol Last Admin: 09/29/17 21:18 Dose: 167 mls/hr Insulin Detemir (Levemir) 65 unit SC HS [facility] Last Admin: 09/29/17 21:24 Dose: Not Given Insulin Human Lispro (Humalog Med) 0 units SC ACHS [facility] PRN Reason: Protocol Last Admin: 09/29/17 21:24 Dose: Not Given Latanoprost (Xalatan Opht) 0 ml OU HS [facility] Last Admin: 09/29/17 21:18 Dose: 2.5 ml Losartan Potassium (Cozaar) 50 mg PO QAM [facility] Magnesium Oxide (Mag-Ox) 400 mg PO BID [facility] Last Admin: 09/29/17 17:05 Dose: 400 mg Non-Formulary Medication (Carvedilol [Coreg Cr]) 10 mg PO QAM [facility] Pantoprazole Sodium (Protonix Inj) 40 mg IVP DAILY [facility] Ramipril (Altace) 10 mg PO QAM [facility] Timolol Maleate (Timoptic-Xe 0.5% Opht Gel) 1 drop OU QAM [facility] - Labs Labs: 09/30/17 04:10 09/30/17 04:10 PT 12.3 SECONDS (9.4-12.5) 09/29/17 12:20 INR 1.07 (0.93-1.08) 09/29/17 12:20 APTT 26.8 Seconds (25.1-36.5) 09/29/17 12:20 - Constitutional Appears: No Acute Distress - Head Exam Head Exam: ATRAUMATIC, NORMAL INSPECTION, NORMOCEPHALIC - Eye Exam Eye Exam: EOMI Pupil Exam: PERRL - ENT Exam ENT Exam: Mucous Membranes Moist - Neck Exam Neck Exam: Normal Inspection - Respiratory Exam Respiratory Exam: Decreased Breath Sounds. absent: Rales, Rhonchi, Wheezes - Cardiovascular Exam Cardiovascular Exam: +S1, +S2. absent: Clicks, Gallop, Rubs - GI/Abdominal Exam GI & Abdominal Exam: Soft. absent: Distended, Firm, Guarding, Rigid, Tenderness , Rebound Additional comments: extensive non-blanching erythematous rash extending from the left lower abdominal quadrant to mid-abdomen; no crepitus or fluctuant masses on examination - Neurological Exam Neurological Exam: Alert, Awake, CN II-XII Intact, Oriented x3 - Psychiatric Exam Psychiatric exam: Normal Affect, Normal Mood - Skin Skin Exam: Dry, Erythema, Intact, Warm Assessment and Plan - Assessment and Plan (Free Text) Plan: 67yo male with history of CAD, DM type 2, PAD, HTN, HLD, obesity presents with abdominal wall cellulitis 1. Abdominal wall cellulitis 2. DM type 2 3. CAD with stenting 4. PAD 5. Hypertension 6. Hyperlipidemia 7. Obesity -Leukocytosis improving and patient has been afebrile overnight -Received IVF bolus in the ED and started on broad-spectrum antibiotics -ID consulted and will continue with zosyn and vancomycin pending cultures -Procalcitonin and cultures are pending -Tylenol PRN for fevers -Abdominal/Pelvis CT was reviewed and revealed no acute abdominal pathology -Surgery consulted for evaluation -He is on insulin sliding scale and levemir with fingerstick coverage for his diabetes, A1C is pending to evaluate glycemic control -He is on aspirin/plavix for his CAD/PAD, lipitor for hyperlipidemia, losartan for hypertension -Consistent carb diet -Lovenox SC for DVT prophylaxis Patient seen and case discussed/reviewed with attending, Dr. Rowley <Feliz Rowley S - Last Filed: 09/30/17 20:06> Objective - Vital Signs/Intake and Output Vital Signs (last 24 hours): Temp Pulse Resp BP Pulse Ox 98.9 F 88 16 138/65 97 09/30/17 17:09 09/30/17 17:09 09/30/17 17:09 09/30/17 17:09 09/30/17 17:09 - Medications Medications: Current Medications Acetaminophen (Tylenol 325mg Tab) 975 mg PO ONCE PRN PRN Reason: Fever >100.4 F Last Admin: 09/29/17 12:42 Dose: 975 mg Acetaminophen (Tylenol 325mg Tab) 650 mg PO Q6H PRN PRN Reason: Fever >100.4 F Acetaminophen (Tylenol 325mg Tab) 650 mg PO Q6H PRN PRN Reason: Pain, moderate (4-7) Last Admin: 09/29/17 17:35 Dose: 650 mg Aspirin (Aspirin Chewable) 81 mg PO DAILY [facility] Last Admin: 09/30/17 09:23 Dose: 81 mg Atorvastatin Calcium (Lipitor) 80 mg PO HS [facility] Last Admin: 09/29/17 21:18 Dose: 80 mg Carvedilol (Coreg) 3.125 mg PO BID [facility] Last Admin: 09/30/17 17:17 Dose: 3.125 mg Clopidogrel Bisulfate (Plavix) 75 mg PO DAILY [facility] Last Admin: 09/30/17 09:26 Dose: 75 mg Enoxaparin Sodium (Lovenox) 40 mg SC DAILY [facility] PRN Reason: Protocol Last Admin: 09/30/17 09:24 Dose: 40 mg Piperacillin Sod/Tazobactam Sod (Zosyn 3.375 In Ns 100ml) 100 mls @ 200 mls/hr IVPB Q6 [facility] PRN Reason: Protocol Stop: 10/06/17 18:01 Last Admin: 09/30/17 17:17 Dose: 200 mls/hr Linezolid (Zyvox 600mg/300ml D5w) 600 mg in 300 mls @ 200 mls/hr IVPB Q12 [facility] PRN Reason: Protocol Stop: 10/07/17 11:31 Last Admin: 09/30/17 12:13 Dose: 200 mls/hr Insulin Detemir (Levemir) 65 unit SC HS [facility] Last Admin: 09/29/17 21:24 Dose: Not Given Insulin Human Lispro (Humalog Med) 0 units SC ACHS [facility] PRN Reason: Protocol Last Admin: 09/30/17 16:46 Dose: 3 unit Insulin Human Lispro (Humalog) 7 units SC AC [facility] Latanoprost (Xalatan Opht) 0 ml OU HS [facility] Last Admin: 09/29/17 21:18 Dose: 2.5 ml Losartan Potassium (Cozaar) 50 mg PO QAM [facility] Last Admin: 09/30/17 09:22 Dose: 50 mg Magnesium Oxide (Mag-Ox) 400 mg PO BID [facility] Last Admin: 09/30/17 17:17 Dose: 400 mg Pantoprazole Sodium (Protonix Inj) 40 mg IVP DAILY [facility] Last Admin: 09/30/17 09:24 Dose: 40 mg Ramipril (Altace) 10 mg PO QAM [facility] Last Admin: 09/30/17 09:22 Dose: 10 mg Timolol Maleate (Timoptic-Xe 0.5% Opht Gel) 1 drop OU QAM [facility] Last Admin: 09/30/17 09:25 Dose: 1 drop - Labs Labs: 09/30/17 04:10 07/13/18 04:10 PT 12.3 SECONDS (9.4-12.5) 09/29/17 12:20 INR 1.07 (0.93-1.08) 09/29/17 12:20 APTT 26.8 Seconds (25.1-36.5) 09/29/17 12:20 Assessment and Plan - Assessment and Plan (Free Text) Plan: Pt seen and examined. I have reviewed the note of the medical office receptionist and agree with it. I have discussed the assessment and plan with the resident. I have reviewed the patient's labs and medications. Erythema on abd is stable. ID following. BCx pending. Losartan for HTN. On ASA for CAD . Continue with Kayley and chino.
[2017-09-30] MEDS: Insulin Lispro (humaLOG) MEDIUM Coverage SC SCH ×3 (08:01→16:46)
[2017-09-30] MEDS: Magnesium Oxide 400 mg Tab UD PO SCH ×2 (09:23→17:17)
[2017-09-30] MEDS: Enoxaparin 40 mg Syringe SC SCH (09:24)
[2017-09-30] MEDS: Vancomycin 1gm in NS 250ml 1 GM/250 ML BAG IVPB SCH (09:25)
[2017-09-30] MEDS: TIMOLOL XE 0.5% OU SCH (09:25)
--- NOTE | 2017-09-30 09:31 | CP.PCM.PN ---
Subjective - Date & Time of Evaluation Date of Evaluation: 09/30/17 Time of Evaluation: 08:51 - Subjective Subjective: Surgery: Dr. Leonard Pt seen and examined. No acute overnight events. States he feels well and doesn' t have any complaints at this time. His abdominal pain has resolved and he admits to tolerating a regular diet. Denies N/V, F/C. Objective - Vital Signs/Intake and Output Vital Signs (last 24 hours): Temp Pulse Resp BP Pulse Ox 99.4 F 74 20 145/74 97 09/30/17 05:48 09/30/17 08:32 09/30/17 05:48 09/30/17 08:32 09/30/17 08:32 Intake and Output: 09/30/17 09/30/17 06:59 18:59 Intake Total 810 Output Total 1000 Balance -190 - Medications Medications: Current Medications Acetaminophen (Tylenol 325mg Tab) 975 mg PO ONCE PRN PRN Reason: Fever >100.4 F Last Admin: 09/29/17 12:42 Dose: 975 mg Acetaminophen (Tylenol 325mg Tab) 650 mg PO Q6H PRN PRN Reason: Fever >100.4 F Acetaminophen (Tylenol 325mg Tab) 650 mg PO Q6H PRN PRN Reason: Pain, moderate (4-7) Last Admin: 09/29/17 17:35 Dose: 650 mg Aspirin (Aspirin Chewable) 81 mg PO DAILY [facility] Atorvastatin Calcium (Lipitor) 80 mg PO HS [facility] Last Admin: 09/29/17 21:18 Dose: 80 mg Clopidogrel Bisulfate (Plavix) 75 mg PO DAILY [facility] Enoxaparin Sodium (Lovenox) 40 mg SC DAILY [facility] PRN Reason: Protocol Piperacillin Sod/Tazobactam Sod (Zosyn 3.375 In Ns 100ml) 100 mls @ 200 mls/hr IVPB Q6 [facility] PRN Reason: Protocol Stop: 10/06/17 18:01 Last Admin: 09/30/17 05:13 Dose: 200 mls/hr Vancomycin HCl (Vancomycin 1gm) 1 gm in 250 mls @ 167 mls/hr IVPB Q12 [facility] PRN Reason: Protocol Last Admin: 09/29/17 21:18 Dose: 167 mls/hr Insulin Detemir (Levemir) 65 unit SC [facility] Last Admin: 09/29/17 21:24 Dose: Not Given Insulin Human Lispro (Humalog Med) 0 units SC ACHS [facility] PRN Reason: Protocol Last Admin: 09/30/17 08:01 Dose: Not Given Latanoprost (Xalatan Opht) 0 ml OU HS [facility] Last Admin: 09/29/17 21:18 Dose: 2.5 ml Losartan Potassium (Cozaar) 50 mg PO QAM [facility] Magnesium Oxide (Mag-Ox) 400 mg PO BID [facility] Last Admin: 09/29/17 17:05 Dose: 400 mg Non-Formulary Medication (Carvedilol [Coreg Cr]) 10 mg PO QAM [facility] Pantoprazole Sodium (Protonix Inj) 40 mg IVP DAILY [facility] Ramipril (Altace) 10 mg PO QAM [facility] Timolol Maleate (Timoptic-Xe 0.5% Opht Gel) 1 drop OU QAM [facility] - Labs Labs: 09/30/17 04:10 09/30/17 04:10 PT 12.3 SECONDS (9.4-12.5) 09/29/17 12:20 INR 1.07 (0.93-1.08) 09/29/17 12:20 APTT 26.8 Seconds (25.1-36.5) 09/29/17 12:20 - Constitutional Appears: Well, No Acute Distress - Head Exam Head Exam: ATRAUMATIC, NORMOCEPHALIC - Eye Exam Eye Exam: Normal appearance - ENT Exam ENT Exam: Mucous Membranes Moist - Respiratory Exam Respiratory Exam: NORMAL BREATHING PATTERN - Cardiovascular Exam Cardiovascular Exam: RRR - GI/Abdominal Exam GI & Abdominal Exam: Soft. absent: Distended, Guarding, Tenderness, Rebound Additional comments: erythema in LLQ slightly improved from yesterday, no active drainage noted from punctate lesion - Neurological Exam Neurological Exam: Alert, Awake, Oriented x3 - Skin Skin Exam: Dry, Warm Assessment and Plan - Assessment and Plan (Free Text) Assessment: 67M with cellulitis of LLQ abdominal wall Plan: - no plan for surgical intervention - cont ABX per ID recs - discussed with Dr. Horacio Phillips
[2017-09-30] MEDS ORDERED: CARVEDILOL 10 MG PO SCH (10:00)
[2017-09-30] MEDS ORDERED: Vancomycin 1gm in NS 250ml 1 GM/250 ML BAG IVPB SCH (10:00)
--- NOTE | 2017-09-30 11:36 | CP.PCM.CON ---
History of Present Illness - History of Present Illness History of Present Illness: 67 year old male with PMH of DM, HTN, dyslipidemia, PAD S/P femoral popliteal bypass, CAD S/P PCI, CVA, S/P right hip replacement, S/P right knee came in to [facility] complaining of pain, redness and swelling on his lower abdominal area since yesterday which started out as a pimple 2 days ago. He states that he scratched the area a few days ago. He has a dog at home but does not scratch or bite him. He denies soaking himself in the tube, no fever or chills, no travel outside of [place] in the past month, no headache or dizziness, no chest pain, no SOB, no cough or colds, no diarrhea, no dysuria. Infectious Diseases consult is requested to further evaluate and manage. Review of Systems - Review of Systems All systems: reviewed and no additional remarkable complaints except (as per HPI ) Past Patient History - Infectious Disease Hx of Infectious Diseases: None - Past Social History Smoking Status: Never Smoked - CARDIAC Hx Cardiac Disorders: Yes (CAD s/p PCI) Hx Hypertension: Yes Other/Comment: hx of left carotid artery occluded no sx as per pt - PULMONARY Hx Respiratory Disorders: No Hx Chronic Obstructive Pulmonary Disease (COPD): No - NEUROLOGICAL Hx Neurological Disorder: Yes HX Cerebrovascular Accident: Yes (L-sided weakness 2004) Other/Comment: left side facial numbness "once and a while" - HEENT Hx HEENT Problems: Yes (eyeglasses) Hx Blind: No Hx Cataracts: Yes (r eye cataract no sx left eye sx lens replacement) Hx Deafness: No Hx Difficulty Chewing: No Hx Epistaxis: No Hx Glaucoma: Yes Hx Macular Degeneration: No - RENAL Hx Chronic Kidney Disease: No Hx Renal Failure: No - ENDOCRINE/METABOLIC Hx Endocrine Disorders: Yes Hx Diabetes Mellitus Type 2: Yes - HEMATOLOGICAL/ONCOLOGICAL Hx Blood Disorders: No - INTEGUMENTARY Hx Dermatological Problems: No Hx Basil Cell: No Hx Eczema: No Hx Melanoma: No Hx Psoriasis: No Hx Squamous Cell: No - MUSCULOSKELETAL/RHEUMATOLOGICAL Hx Musculoskeletal Disorders: Yes Hx Falls: No - GASTROINTESTINAL Hx Gastrointestinal Disorders: Yes Hx Colostomy: No Hx Crohn's Disease: No Hx Diverticulitis: No Hx Gall Bladder Disease: No Hx Gastroesophageal Reflux: Yes Hx Ileostomy: No Hx Liver Failure: No Hx Pancreatitis: No HX Swallowing Problems: No - GENITOURINARY/GYNECOLOGICAL Hx Genitourinary Disorders: No Hx Hematuria: No Hx Incontinence: No Hx Prostate Problems: No Hx Sexually Transmitted Disorders: No Hx Urinary Tract Infection: No - PSYCHIATRIC Hx Psychophysiologic Disorder: No Hx Anxiety: No Hx Bipolar Disorder: No Hx Depression: No Hx Emotional Abuse: No Hx Hallucinations: No Hx Panic Symptoms: No Hx Post Traumatic Stress Disorder: No Hx Psychosis: No Hx Physical Abuse: No Hx Schizophrenia: No Hx Sexual Abuse: No Hx Substance Use: No - SURGICAL HISTORY Hx Surgeries: Yes Hx Amputation: No Hx Appendectomy: No Hx Cardiac Catheterization: No Hx Cholecystectomy: No Hx Coronary Stent: Yes Hx Gastric Bypass Surgery: No Hx Hysterectomy: No Hx Joint Replacement: No Hx Kidney Transplant: No Hx Liver Transplant: No Hx Mastectomy: No Hx Musculoskeletal Surgery: Yes Hx Open Heart Surgery: No Hx Orthopedic Surgery: No Hx Splenectomy: No Hx Valve Replacement: No Other/Comment: left femoral arterial bypass 02/19/15, femoral angiogram x2, cardiac cath/ptca with 1 stent, right quadricept repair lle, right total hip replacement 10/2013 - ANESTHESIA Hx Anesthesia: Yes Hx Anesthesia Reactions: No Hx Malignant Hyperthermia: No Meds Allergies/Adverse Reactions: Allergies Allergy/AdvReac Type Severity Reaction Status Date / Time Iodine and Iodide Containing Allergy RASH Verified 09/29/17 15:08 Produc IV contrast Allergy RASH Uncoded 09/29/17 15:08 - Medications Medications: Current Medications Acetaminophen (Tylenol 325mg Tab) 975 mg PO ONCE PRN PRN Reason: Fever >100.4 F Last Admin: 09/29/17 12:42 Dose: 975 mg Acetaminophen (Tylenol 325mg Tab) 650 mg PO Q6H PRN PRN Reason: Fever >100.4 F Aspirin (Aspirin Chewable) 81 mg PO DAILY [facility] Atorvastatin Calcium (Lipitor) 80 mg PO HS [facility] Clopidogrel Bisulfate (Plavix) 75 mg PO DAILY [facility] Piperacillin Sod/Tazobactam Sod (Zosyn 3.375 In Ns 100ml) 100 mls @ 200 mls/hr IVPB Q6 [facility] PRN Reason: Protocol Stop: 09/30/17 00:29 Insulin Detemir (Levemir) 65 unit SC HS [facility] Insulin Human Lispro (Humalog Med) 0 units SC ACHS [facility] PRN Reason: Protocol Latanoprost (Xalatan Opht) 0 ml OU HS [facility] Losartan Potassium (Cozaar) 50 mg PO QAM [facility] Non-Formulary Medication (Carvedilol [Coreg Cr]) 10 mg PO QAM [facility] Ramipril (Altace) 10 mg PO QAM [facility] Timolol Maleate (Timoptic-Xe 0.5% Opht Gel) 1 drop OU QAM [facility] Physical Exam - Constitutional Appears: Non-toxic - Head Exam Head Exam: NORMAL INSPECTION - ENT Exam ENT Exam: Mucous Membranes Moist - Neck Exam Neck exam: Negative for: Lymphadenopathy, Meningismus - Respiratory Exam Respiratory Exam: absent: Rales, Rhonchi - Cardiovascular Exam Cardiovascular Exam: +S1, +S2 - GI/Abdominal Exam GI & Abdominal Exam: Soft, Tenderness (over left lower qudarant area with area of erythema which is starting to recede compared to yesterday) Results - Vital Signs Recent Vital Signs: Last Vital Signs Temp 98.7 F 09/29/17 14:41 Pulse 90 09/29/17 14:41 Resp 20 09/29/17 14:41 BP 121/65 09/29/17 14:41 Pulse Ox 97 09/29/17 14:41 - Labs Result Diagrams: 09/30/17 04:10 09/30/17 04:10 Assessment & Plan - Assessment and Plan (Free Text) Plan: Assessment Sepsis due to abdominal wall cellulitis, slowly improving DM HTN dyslipidemia PAD S/P femoral popliteal bypass CAD S/P PCI CVA S/P right hip replacement S/P right knee Plan Started Zyvox and Zosyn and will continue to monitor clinical response; follow up blood cx; reviewed CT A/P which does not show abscess or deeper infection will monitor clinically
[2017-09-30] MEDS: Linezolid 600 mg in D5W 300 ml 600 MG/300 ML BAG IVPB SCH ×2 (12:13→21:52)
[2017-09-30] MEDS: Insulin Detemir 100 units/ml Vial (Levemir) SC SCH (21:52)
[2017-09-30] MEDS: Latanoprost 2.5 ml Opht Soln OU SCH (21:56)
[2017-09-30 22:45] VITALS: RESP 20
[2017-10-01] MEDS: Piperacillin/Tazobact 3.375 gm 100 ML IVPB SCH ×4 (05:42→23:19)
[2017-10-01 06:47] LABS: BASO # 0.03 K/mm3 (0.0-2.0); BASO % 0.3 % (0.0-3.0); EOS # 0.4 (0.0-0.7); EOS % 3.8 % (1.5-5.0); GRAN # 6.4 (1.4-6.5); GRAN % 66.1 % (50.0-68.0); HEMOGLOBIN 12.5 g/dL (14.0-18.0); LYMPH # 1.5 (1.2-3.4); LYMPH % 15.8 % (22.0-35.0); MEAN CELL VOLUME 82.7 fl (80.0-105.0); MEAN CORPUSCULAR HGB CONC 32.6 g/dl (31.0-37.0); MEAN PLATELET VOLUME 10.1 fl (7.0-11.0); MONO # 1.4 (0.1-0.6); RBC 4.63 10^6/uL (3.5-6.1); RED CELL DISTRIBUTION WIDTH 14.5 % (11.5-14.5); WHITE BLOOD COUNT 9.7 10^3/ul (4.5-11.0)
[2017-10-01 07:04] LABS: ALB/GLOB RATIO 1.3 (1.1-1.8); ALBUMIN 3.7 g/dL (3.0-4.8); ALT/SGPT 26 U/L (7-56); AST/SGOT 28 U/L (17-59); BLOOD UREA NITROGEN 14 mg/dL (7-21); CALCIUM 8.7 mg/dL (8.4-10.5); GFR AFRICAN-AMERICAN > 60; GFR NON-AFRICAN AMERICAN > 60
[2017-10-01] MEDS: Insulin Lispro (humaLOG) MEDIUM Coverage SC SCH ×4 (08:00→21:52)
[2017-10-01] MEDS: Insulin Lispro 1 UNITS/0.01 ML SC SCH ×3 (08:55→17:49)
[2017-10-01] MEDS: Linezolid 600 mg in D5W 300 ml 600 MG/300 ML BAG IVPB SCH ×2 (09:37→21:46)
[2017-10-01] MEDS: Enoxaparin 40 mg Syringe SC SCH (09:38)
[2017-10-01] MEDS: Magnesium Oxide 400 mg Tab UD PO SCH ×2 (09:38→17:50)
[2017-10-01] MEDS: TIMOLOL XE 0.5% OU SCH (10:00)
--- NOTE | 2017-10-01 12:50 | CP.PCM.PN ---
Subjective - Date & Time of Evaluation Date of Evaluation: 09/30/17 Time of Evaluation: 11:55 - Subjective Subjective: No fevers, not in distress, abdomen is slowly feeling better. Objective - Vital Signs/Intake and Output Vital Signs (last 24 hours): Temp Pulse Resp BP Pulse Ox 99.1 F 84 20 124/63 98 09/30/17 22:00 09/30/17 22:00 09/30/17 22:00 09/30/17 22:00 09/30/17 22:00 - Medications Medications: Current Medications Acetaminophen (Tylenol 325mg Tab) 975 mg PO ONCE PRN PRN Reason: Fever >100.4 F Last Admin: 09/29/17 12:42 Dose: 975 mg Acetaminophen (Tylenol 325mg Tab) 650 mg PO Q6H PRN PRN Reason: Fever >100.4 F Acetaminophen (Tylenol 325mg Tab) 650 mg PO Q6H PRN PRN Reason: Pain, moderate (4-7) Last Admin: 09/29/17 17:35 Dose: 650 mg Aspirin (Aspirin Chewable) 81 mg PO DAILY [facility] Last Admin: 09/30/17 09:23 Dose: 81 mg Atorvastatin Calcium (Lipitor) 80 mg PO HS [facility] Last Admin: 09/30/17 21:53 Dose: 80 mg Carvedilol (Coreg) 3.125 mg PO BID [facility] Last Admin: 09/30/17 17:17 Dose: 3.125 mg Clopidogrel Bisulfate (Plavix) 75 mg PO DAILY [facility] Last Admin: 09/30/17 09:26 Dose: 75 mg Enoxaparin Sodium (Lovenox) 40 mg SC DAILY [facility] PRN Reason: Protocol Last Admin: 09/30/17 09:24 Dose: 40 mg Piperacillin Sod/Tazobactam Sod (Zosyn 3.375 In Ns 100ml) 100 mls @ 200 mls/hr IVPB Q6 [facility] PRN Reason: Protocol Stop: 10/06/17 18:01 Last Admin: 09/30/17 17:17 Dose: 200 mls/hr Linezolid (Zyvox 600mg/300ml D5w) 600 mg in 300 mls @ 200 mls/hr IVPB Q12 [facility] PRN Reason: Protocol Stop: 10/07/17 11:31 Last Admin: 09/30/17 21:52 Dose: 200 mls/hr Insulin Detemir (Levemir) 65 unit SC HS [facility] Last Admin: 09/30/17 21:52 Dose: 65 unit Insulin Human Lispro (Humalog Med) 0 units SC ACHS [facility] PRN Reason: Protocol Last Admin: 09/30/17 16:46 Dose: 3 unit Insulin Human Lispro (Humalog) 7 units SC AC [facility] Latanoprost (Xalatan Opht) 0 ml OU HS [facility] Last Admin: 09/30/17 21:56 Dose: 5 ml Losartan Potassium (Cozaar) 50 mg PO QAM [facility] Last Admin: 09/30/17 09:22 Dose: 50 mg Magnesium Oxide (Mag-Ox) 400 mg PO BID [facility] Last Admin: 09/30/17 17:17 Dose: 400 mg Pantoprazole Sodium (Protonix Inj) 40 mg IVP DAILY [facility] Last Admin: 09/30/17 09:24 Dose: 40 mg [facility]ip[facility] ([facility]ace) [facility] Last Admin: 09/30/17 09:22 Dose: 10 mg Timolol Maleate (Timoptic-Xe 0.5% Opht Gel) 1 [facility] Last Admin: 09/30/17 09:25 Dose: 1 drop - Labs Labs: 09/30/17 04:10 09/30/17 04:10 PT 12.3 SECONDS (9.4-12.5) 09/29/17 12:20 INR 1.07 (0.93-1.08) 09/29/17 12:20 APTT 26.8 Seconds (25.1-36.5) 09/29/17 12:20 - Constitutional Appears: Non-toxic, Chronically Ill - Head Exam Head Exam: NORMAL INSPECTION - ENT Exam ENT Exam: Mucous Membranes Moist - Neck Exam Neck Exam: absent: Lymphadenopathy, Meningismus - Respiratory Exam Respiratory Exam: Decreased Breath Sounds. absent: Rales - Cardiovascular Exam Cardiovascular Exam: +S1, +S2 - GI/Abdominal Exam GI & Abdominal Exam: Soft. absent: Tenderness Additional comments: LLQ area of erythema is much less intense and slowly receding, induration is much softer Assessment and Plan - Assessment and Plan (Free Text) Plan: Assessment Sepsis due to abdominal wall cellulitis, slowly improving DM HTN dyslipidemia PAD S/P femoral popliteal bypass CAD S/P PCI CVA S/P right hip replacement S/P right knee Plan continue Zyvox and Zosyn day 2 and will continue to monitor clinical response; blood cx are negative; reviewed CT A/P which does not show abscess or deeper infection (ie. no necrosis or fasciitis on CT A/P) will continue to monitor clinically
--- NOTE | 2017-10-01 13:23 | PN ---
DATE: 10/01/2017 SUBJECTIVE: The patient is 67 years old, seen and examined, lying in bed, seems to be comfortable. No fever. No chills. No nausea, vomiting, or diarrhea. He states he came in with abdominal wall cellulitis that seems to be improving. OBJECTIVE: VITAL SIGNS: He is afebrile, pulse 83, respirations 20, blood pressure 128/70. LUNGS: Bilateral fair air flow. No rhonchi or crackles. HEART: S1 and S2 audible. ABDOMEN: Soft, obese. He has abdominal wall cellulitis in the left lower quadrant area, seems to be receding. LABORATORY EXAM: WBC is 9.7, hemoglobin 12.5, hematocrit 38.3, and platelets 236. Chemistry: Sodium 143, potassium 4, chloride 103, CO2 of 29. BUN 14, creatinine 1. Blood sugar 141. Blood cultures and urine cultures are negative. CT of the abdomen and pelvis was done that shows no evidence of abscess, nonobstructing right renal pelvis stone. ASSESSMENT: 1. Abdominal wall cellulitis. 2. Morbid obesity. 3. Hypertension. 4. Coronary artery disease, status post angioplasty. 5. Hyperlipidemia. 6. History of glaucoma. PLAN: Currently, the patient is on Plavix and atorvastatin. His blood sugar is being monitored. He is on , aspirin, and ramipril. We will continue him on Zosyn and the patient is on Zyvox. Chemistry seems to be normal. There is no need to follow up in the morning. Jeanne Vital MD
[2017-10-01] MEDS ORDERED: Magnesium Citrate Oral SOL (300 ml) PO ONE (21:17)
[2017-10-01] MEDS: Latanoprost 2.5 ml Opht Soln OU SCH (21:47)
[2017-10-01] MEDS: Insulin Detemir 100 units/ml Vial (Levemir) SC SCH (21:51)
[2017-10-02] MEDS: Piperacillin/Tazobact 3.375 gm 100 ML IVPB SCH ×3 (05:39→17:23)
[2017-10-02] MEDS: Pantoprazole 40 mg EC Tab PO SCH (05:39)
[2017-10-02] MEDS: Insulin Lispro 1 UNITS/0.01 ML SC SCH ×3 (07:58→17:24)
[2017-10-02] MEDS: Insulin Lispro (humaLOG) MEDIUM Coverage SC SCH ×3 (09:12→17:13)
[2017-10-02] MEDS: Linezolid 600 mg in D5W 300 ml 600 MG/300 ML BAG IVPB SCH ×2 (09:20→21:57)
[2017-10-02] MEDS: Enoxaparin 40 mg Syringe SC SCH (09:21)
[2017-10-02] MEDS: Magnesium Oxide 400 mg Tab UD PO SCH ×2 (09:22→17:25)
[2017-10-02] MEDS: TIMOLOL XE 0.5% OU SCH (09:23)
[2017-10-02] MEDS: POLYETHYLENE GLYCOL 3350 17 GM/Dose PACKET PO SCH (09:24)
--- NOTE | 2017-10-02 16:30 | CP.PCM.PN ---
Subjective - Date & Time of Evaluation Date of Evaluation: 10/02/17 Time of Evaluation: 11:30 - Subjective Subjective: Feeling much better, no fevers, decreased pain and swelling over the abdominal area. Objective - Vital Signs/Intake and Output Vital Signs (last 24 hours): Temp Pulse Resp BP Pulse Ox 98 F 74 20 135/65 97 10/02/17 06:00 10/02/17 06:00 10/02/17 06:00 10/02/17 06:00 10/02/17 06:00 Intake and Output: 10/02/17 10/02/17 06:59 18:59 Intake Total 1140 Output Total 700 Balance 440 - Medications Medications: Current Medications Acetaminophen (Tylenol 325mg Tab) 650 mg PO Q6H PRN PRN Reason: Fever >100.4 F Last Admin: 10/01/17 12:29 Dose: 650 mg Acetaminophen (Tylenol 325mg Tab) 650 mg PO Q6H PRN PRN Reason: Pain, moderate (4-7) Last Admin: 09/29/17 17:35 Dose: 650 mg Aspirin (Aspirin Chewable) 81 mg PO DAILY [facility] Last Admin: 10/01/17 09:39 Dose: 81 mg Atorvastatin Calcium (Lipitor) 80 mg PO HS [facility] Last Admin: 10/01/17 21:51 Dose: 80 mg Carvedilol (Coreg) 3.125 mg PO BID [facility] Last Admin: 10/01/17 17:50 Dose: 3.125 mg Clopidogrel Bisulfate (Plavix) 75 mg PO DAILY [facility] Last Admin: 10/01/17 09:37 Dose: 75 mg Enoxaparin Sodium (Lovenox) 40 mg SC DAILY [facility] PRN Reason: Protocol Last Admin: 10/01/17 09:38 Dose: 40 mg Piperacillin Sod/Tazobactam Sod (Zosyn 3.375 In Ns 100ml) 100 mls @ 200 mls/hr IVPB Q6 [facility] PRN Reason: Protocol Stop: 10/06/17 18:01 Last Admin: 10/02/17 05:39 Dose: 200 mls/hr Linezolid (Zyvox 600mg/300ml D5w) 600 mg in 300 mls @ 200 mls/hr IVPB Q12 [facility] PRN Reason: Protocol Stop: 10/07/17 11:31 Last Admin: 10/01/17 21:46 Dose: 200 mls/hr Insulin Detemir (Levemir) 65 unit SC HS [facility] Last Admin: 10/01/17 21:51 Dose: 65 unit Insulin Human Lispro (Humalog Med) 0 units SC ACHS [facility] PRN Reason: Protocol Last Admin: 10/01/17 21:52 Dose: Not Given Insulin Human Lispro (Humalog) 7 units SC AC [facility] Last Admin: 10/01/17 17:49 Dose: 7 unit Latanoprost (Xalatan Opht) 0 ml OU HS [facility] Last Admin: 10/01/17 21:47 Dose: 2.5 ml Losartan Potassium (Cozaar) 50 mg PO QAM [facility] Last Admin: 10/01/17 09:39 Dose: 50 mg Magnesium Oxide (Mag-Ox) 400 mg PO BID [facility] Last Admin: 10/01/17 17:50 Dose: 400 mg Pantoprazole Sodium (Protonix Ec Tab) 40 mg PO 0600 [facility] Last Admin: 10/02/17 05:39 Dose: 40 mg Polyethylene Glycol (Miralax) 17 gm PO DAILY [facility] Ramipril (Altace) 10 mg PO QAM [facility] Last Admin: 10/01/17 09:39 Dose: 10 mg Timolol Maleate (Timoptic-Xe 0.5% Opht Gel) 1 drop [facility] Last Admin: 10/01/17 10:00 Dose: 1 drop - Labs Labs: 10/01/17 06:30 10/01/17 06:30 PT 12.3 SECONDS (9.4-12.5) 09/29/17 12:20 INR 1.07 (0.93-1.08) 09/29/17 12:20 APTT 26.8 Seconds (25.1-36.5) 09/29/17 12:20 - Constitutional Appears: Non-toxic, Chronically Ill - Head Exam Head Exam: NORMAL INSPECTION - ENT Exam ENT Exam: Mucous Membranes Moist - Neck Exam Neck Exam: absent: Meningismus - Respiratory Exam Respiratory Exam: Decreased Breath Sounds - Cardiovascular Exam Cardiovascular Exam: +S1, +S2 - GI/Abdominal Exam GI & Abdominal Exam: Soft. absent: Tenderness Additional comments: improved erythema and swelling of the left lower abdominal area, with no more tenderness Assessment and Plan - Assessment and Plan (Free Text) Plan: Assessment Sepsis due to abdominal wall cellulitis, clinically improving DM HTN dyslipidemia PAD S/P femoral popliteal bypass CAD S/P PCI CVA S/P right hip replacement S/P right knee Plan continue Zyvox and Zosyn day 3 - can switch to Zyvox and Augmentin for another 5 -7 days when ready for discharge
[2017-10-02 20:56] LABS: PH,URINE 6.5 (4.7-8.0); URINE BILIRUBIN SMALL (NEGATIVE); URINE BLOOD LARGE (NEGATIVE); URINE GLUCOSE (UA) 100 mg/dL (NEGATIVE); URINE LEUKOCYTE ESTERASE TRACE Leu/uL (NEGATIVE); URINE PROTEIN 100 mg/dL (<30 mg/dL)
--- NOTE | 2017-10-02 21:10 | PN ---
DATE: 10/02/2017 HISTORY OF PRESENT ILLNESS: Mr. Benton is a 67-year-old male admitted to the hospital with abdominal wall cellulitis. He is currently being treated with IV antibiotics. He has a history of coronary artery disease, stable, no issues right now; history of diabetes mellitus type 2, controlled with current medications; history of hypertension, blood pressure controlled on current medications, stable; history of peripheral artery disease status post femoropopliteal bypass; abdominal wall cellulitis, markedly improved; erythema and rash decreased compared to the previous. PAST MEDICAL HISTORY: As HPI. PAST SURGICAL HISTORY: Left femoropopliteal bypass, hematoma; right hip replacement. ALLERGIES: IODINE CONTRAST. PERSONAL HISTORY: No history of alcohol abuse. Nonsmoker. FAMILY HISTORY: Noncontributory. REVIEW OF SYSTEMS: As per HPI. Rest of 12-point review of systems reviewed, negative. MEDICATIONS: Tylenol 650 every 6 hour p.r.n., aspirin 81 mg daily, Lipitor 80 mg daily, Coreg 3.125 mg p.o. b.i.d., Plavix 75 mg p.o. daily, Lovenox 40 mg subcu daily, Levemir 65 every night, Cozaar 50 mg daily, magnesium 400 mg p.o. b.i.d., Protonix 40 mg daily, MiraLax 17 g daily, Altace 10 mg daily. LABORATORY DATA: White count 9.7, previously elevated at 17.4, hemoglobin 12.5, hematocrit 38.2, platelet 236. Glucose 150. ASSESSMENT: 1. Abdominal wall cellulitis. 2. Leukocytosis, anemia. 3. Diabetes mellitus type 2. 4. Hypertension. PLAN: Abdominal wall cellulitis, resolving now, currently on IV antibiotics as per ID. He is on Zyvox every 12 hours. We will continue with that. Insulin for diabetes mellitus, blood sugar control with current medications. Continue antihypertensive, Coreg. DVT prophylaxis with Lovenox 30 subcu every 12 and continue Altace. Blood counts improving. Leukocytosis improved. Mild anemia, hemoglobin and hematocrit stable. Suzi Mcrae MD
[2017-10-02 21:11] LABS: URINE APPEARANCE BLOODY (CLEAR); URINE COLOR LIGHT RED (YELLOW)
[2017-10-02 21:46] LABS: URINE RBC TNTC /hpf (0-2)
[2017-10-02 21:47] LABS: URINE BACTERIA FEW (NEG)
[2017-10-02] MEDS: Latanoprost 2.5 ml Opht Soln OU SCH (21:56)
[2017-10-02] MEDS: Insulin Detemir 100 units/ml Vial (Levemir) SC SCH (21:57)
[2017-10-03] MEDS: Insulin Lispro (humaLOG) MEDIUM Coverage SC SCH ×2 (01:33→08:19)
[2017-10-03] MEDS: Pantoprazole 40 mg EC Tab PO SCH (06:21)
[2017-10-03 06:38] LABS: BASO # 0.02 K/mm3 (0.0-2.0); BASO % 0.2 % (0.0-3.0); EOS # 0.4 (0.0-0.7); EOS % 3.9 % (1.5-5.0); GRAN # 5.71 (1.4-6.5); GRAN % 63.6 % (50.0-68.0); HEMOGLOBIN 13.4 g/dL (14.0-18.0); LYMPH # 1.8 (1.2-3.4); MEAN CELL VOLUME 82.9 fl (80.0-105.0); MEAN CORPUSCULAR HEMOGLOBIN 27.2 pg (25.0-35.0); MEAN CORPUSCULAR HGB CONC 32.8 g/dl (31.0-37.0); MEAN PLATELET VOLUME 9.8 fl (7.0-11.0); MONO # 1.1 (0.1-0.6); MONO % 12.3 % (1.0-6.0); RBC 4.92 10^6/uL (3.5-6.1)
[2017-10-03 07:23] LABS: ALB/GLOB RATIO 1.3 (1.1-1.8); ALBUMIN 3.8 g/dL (3.0-4.8); ALT/SGPT 24 U/L (7-56); AST/SGOT 22 U/L (17-59); BLOOD UREA NITROGEN 13 mg/dL (7-21); CALCIUM 8.9 mg/dL (8.4-10.5); GFR AFRICAN-AMERICAN > 60; GFR NON-AFRICAN AMERICAN > 60
[2017-10-03] MEDS: Insulin Lispro 1 UNITS/0.01 ML SC SCH (08:19)
[2017-10-03 08:26] VITALS: TEMP 98.8; O2SAT 97
--- NOTE | 2017-10-03 09:53 | CP.PCM.DIS ---
<Cristofer Villa - Last Filed: 10/03/17 11:29> Provider - Provider Date of Admission: 09/29/17 12:58 Attending physician: Feliz Rowley MD Primary care physician: Mahesh Flores MD Consults: ID - Dr. Mcgraw Time Spent in preparation of Discharge (in minutes): 35 Hospital Course - Lab Results Lab Results: Micro Results 09/29/17 16:07 Abdomen Gram Stain - Final 09/29/17 16:07 Abdomen Wound Culture - Preliminary Yeast Species 09/29/17 15:03 Urine Urine Culture - Final No Growth (<1,000 CFU/ML) Most Recent Lab Values WBC 9.0 10^3/ul (4.5-11.0) 10/03/17 06:15 RBC 4.92 10^6/uL (3.5-6.1) 10/03/17 06:15 Hgb 13.4 g/dL (14.0-18.0) L 10/03/17 06:15 Hct 40.8 % (42.0-52.0) L 10/03/17 06:15 MCV 82.9 fl (80.0-105.0) 10/03/17 06:15 MCH 27.2 pg (25.0-35.0) 10/03/17 06:15 MCHC 32.8 g/dl (31.0-37.0) 10/03/17 06:15 RDW 14.0 % (11.5-14.5) 10/03/17 06:15 Plt Count 256 10^3/uL (120.0-450.0) 10/03/17 06:15 MPV 9.8 fl (7.0-11.0) 10/03/17 06:15 Gran % 63.6 % (50.0-68.0) 10/03/17 06:15 Lymph % (Auto) 20.0 % (22.0-35.0) L 10/03/17 06:15 [place] % (Auto) 12.3 % (1.0-6.0) H 10/03/17 06:15 Eos % (Auto) 3.9 % (1.5-5.0) 10/03/17 06:15 Baso % (Auto) 0.2 % (0.0-3.0) 10/03/17 06:15 Gran # 5.71 (1.4-6.5) 10/03/17 06:15 Lymph # (Auto) 1.8 (1.2-3.4) 10/03/17 06:15 Barber # (Auto) 1.1 (0.1-0.6) H 10/03/17 06:15 Eos # (Auto) 0.4 (0.0-0.7) 10/03/17 06:15 Baso # (Auto) 0.02 K/mm3 (0.0-2.0) 10/03/17 06:15 ESR 15 mm/hr (0.00-15.0) 09/29/17 15:47 PT 12.3 SECONDS (9.4-12.5) 09/29/17 12:20 INR 1.07 (0.93-1.08) 09/29/17 12:20 APTT 26.8 Seconds (25.1-36.5) 09/29/17 12:20 pO2 26 mm/Hg (30-55) L 09/29/17 12:20 VBG pH 7.33 (7.32-7.43) 09/29/17 12:20 VBG pCO2 53.0 (40-60) 09/29/17 12:20 VBG HCO3 27.9 mmol/l (21-28) 09/29/17 12:20 VBG Total CO2 29.5 mmol.L (22-28) H 09/29/17 12:20 VBG O2 Sat (Calc) 51.0 % (40-65) 09/29/17 12:20 VBG Base Excess 1.0 mmol/L (0.0-2.0) 09/29/17 12:20 VBG Potassium 4.8 mmol/L (3.6-5.2) 09/29/17 12:20 Sodium 137.0 mmol/L (132-148) 09/29/17 12:20 Chloride 103.0 mmol/L (98-107) 09/29/17 12:20 Glucose 166 mg/dl (75-110) H 09/29/17 12:20 Lactate 1.9 mmol/L (0.7-2.1) 09/29/17 12:20 FiO2 21.0 % 09/29/17 12:20 Sodium 142 mmol/L (132-148) 10/03/17 06:15 Potassium 4.4 mmol/L (3.6-5.0) 10/03/17 06:15 Chloride 104 mmol/L (98-107) 10/03/17 06:15 Carbon Dioxide 27 mmol/L (21-33) 10/03/17 06:15 Anion Gap 15 (10-20) 10/03/17 06:15 BUN 13 mg/dL (7-21) 10/03/17 06:15 Creatinine 1.0 mg/dl (0.8-1.5) 10/03/17 06:15 Est GFR ( Amer) > 60 10/03/17 06:15 Est GFR (Non-Af Amer) > 60 10/03/17 06:15 POC Glucose (mg/dL) 153 mg/dL (65-110) H 10/03/17 06:25 Random Glucose 163 mg/dL (70-110) H 10/03/17 06:15 Hemoglobin A1c 6.1 % (4.2-6.5) 09/29/17 15:47 Lactic Acid 1.5 mmol/L (0.7-2.1) 09/29/17 15:47 Calcium 8.9 mg/dL (8.4-10.5) 10/03/17 06:15 Phosphorus 3.6 mg/dL (2.5-4.5) 10/01/17 06:30 Magnesium 1.9 mg/dL (1.7-2.2) 10/01/17 06:30 Total Bilirubin 0.6 mg/dL (0.2-1.3) 10/03/17 06:15 AST 22 U/L (17-59) 10/03/17 06:15 ALT 24 U/L (7-56) 10/03/17 06:15 Alkaline Phosphatase 47 U/L (38-126) 10/03/17 06:15 C-Reactive Protein 65.80 mg/L (0.0-9.9) H 09/29/17 12:00 Total Protein 6.7 g/dL (5.8-8.3) 10/03/17 06:15 Albumin 3.8 g/dL (3.0-4.8) 10/03/17 06:15 Globulin 2.9 gm/dL 10/03/17 06:15 Albumin/Globulin Ratio 1.3 (1.1-1.8) 10/03/17 06:15 Procalcitonin 0.14 NG/ML (0.19-0.49) L 09/29/17 15:47 Venous Blood Potassium 4.8 mmol/L (3.6-5.2) 09/29/17 12:20 Urine Color Light red (YELLOW) 10/02/17 20:15 Urine Appearance Bloody (CLEAR) 10/02/17 20:15 Urine pH 6.5 (4.7-8.0) 10/02/17 20:15 Ur Specific [place] 1.015 (1.005-1.035) 10/02/17 20:15 Urine Protein 100 mg/dL (<30 mg/dL) H 10/02/17 20:15 Urine Glucose (UA) 100 mg/dL (NEGATIVE) H 10/02/17 20:15 Urine Ketones Trace mg/dL (NEGATIVE) H 10/02/17 20:15 Urine Blood Large (NEGATIVE) H 10/02/17 20:15 Urine Nitrate Negative (NEGATIVE) 10/02/17 20:15 Urine Bilirubin Small (NEGATIVE) H 10/02/17 20:15 Urine Urobilinogen 1.0 E.U./dL (<1 E.U./dL) H 10/02/17 20:15 Ur Leukocyte Esterase Trace Brynn/uL (NEGATIVE) H 10/02/17 20:15 Urine RBC Tntc /hpf (0-2) 10/02/17 20:15 Urine WBC 10 - 15 /hpf (0-6) 10/02/17 20:15 Ur Epithelial Cells None /hpf (0-5) 10/02/17 20:15 Urine Bacteria Few (NEG) 10/02/17 20:15 - Hospital Course Hospital Course: Patient is a 67yo male with past medical history of DM type 2, HTN, HLD, PAD s/ p fem-pop bypass, CAD with stents, CVA & obesity who presented to [facility] with c/o abdominal rash. He reported having a small pimple in the left lower quadrant of his abdomen the day prior to arrival. He reported applying some antibiotic ointment onto the region and a bandaid and woke up the following morning to discover an extensive erythematous rash spreading throughout the left half of his abdomen. He also admitted to having subjective fevers and chills. He went to see his PMD who evaluated and instructed him to go to the emergency room. He denied ever having a similar problem in the past. He also denied trauma, sick contacts, recent travel, cough, focal weakness, numbness, tingling, abdominal pain, nausea, vomiting, chest pain, palpitations, SOB, dysuria, frequency, urgency, bowel/bladder problems. In the ER, CT abdomen/ pelvis revealed no evidence of abdominal wall abscess or acute abdominal pathology. CXR revealed no active disease. Infectious disease was consulted and started the patient on zyvox and zosyn. He had significant improvement of his abdominal cellulitis and had no episodes of fever/chills. He was subsequently discharged on oral augmentin and zyvox. He was instructed to follow up with his primary doctor within 1 week of discharge. Discharge Exam - Head Exam Head Exam: NORMAL INSPECTION - Eye Exam Eye Exam: EOMI, PERRL - ENT Exam ENT Exam: Mucous Membranes Moist - Neck Exam Neck exam: Normal Inspection - Respiratory Exam Respiratory Exam: Clear to PA & Lateral. absent: Rales, Rhonchi, Wheezes - Cardiovascular Exam Cardiovascular Exam: RRR, +S1, +S2. absent: Gallop, Rubs - GI/Abdominal Exam GI & Abdominal Exam: Soft. absent: Distended, Firm, Guarding, Rebound, Tenderness - Extremities Exam Extremities exam: normal inspection - Neurological Exam Neurological exam: CN II-XII Intact, Oriented x3 - Skin Skin Exam: Dry, Intact, Rash (erythematous rash on LLQ abdomen significantly improved ), Warm Discharge Plan - Discharge Medications Prescriptions: Amoxicillin/Clavulanate [Augmentin 875 MG-125 MG] 1 tab PO Q12H #14 tab Linezolid [Zyvox] 600 mg PO Q12H #14 tab - Follow Up Plan Condition: SERIOUS Disposition: HOME/ ROUTINE Instructions: Sepsis, Adult (DC), Cellulitis (Skin Infection), Adult (DC) Additional Instructions: 1. Follow up with your primary doctor within 1 week of discharge. 2. Continue to take your medications as prescribed. 3. Take the antibiotic medication prescribed to you as directed. 4. Return to the emergency room should you have a worsening of your symptoms/ condition. Referrals: Mahesh Flores MD [Primary Care Provider] - <Feliz Rowley - Last Filed: 10/03/17 19:52> Provider - Provider Date of Admission: 09/29/17 12:58 Attending physician: Feliz Rowley MD Primary care physician: Mahesh Flores MD Hospital Course - Lab Results Lab Results: Micro Results 09/29/17 16:07 Abdomen Gram Stain - Final 09/29/17 16:07 Abdomen Wound Culture - Preliminary Yeast Species 09/29/17 15:03 Urine Urine Culture - Final No Growth (<1,000 CFU/ML) Most Recent Lab Values WBC 9.0 10^3/ul (4.5-11.0) 10/03/17 06:15 RBC 4.92 10^6/uL (3.5-6.1) 10/03/17 06:15 Hgb 13.4 g/dL (14.0-18.0) L 10/03/17 06:15 Hct 40.8 % (42.0-52.0) L 10/03/17 06:15 MCV 82.9 fl (80.0-105.0) 10/03/17 06:15 MCH 27.2 pg (25.0-35.0) 10/03/17 06:15 MCHC 32.8 g/dl (31.0-37.0) 10/03/17 06:15 RDW 14.0 % (11.5-14.5) 10/03/17 06:15 Plt Count 256 10^3/uL (120.0-450.0) 10/03/17 06:15 MPV 9.8 fl (7.0-11.0) 10/03/17 06:15 Gran % 63.6 % (50.0-68.0) 10/03/17 06:15 Lymph % (Auto) 20.0 % (22.0-35.0) L 10/03/17 06:15 Barber % (Auto) 12.3 % (1.0-6.0) H 10/03/17 06:15 Eos % (Auto) 3.9 % (1.5-5.0) 10/03/17 06:15 Baso % (Auto) 0.2 % (0.0-3.0) 10/03/17 06:15 Gran # 5.71 (1.4-6.5) 10/03/17 06:15 Lymph # (Auto) 1.8 (1.2-3.4) 10/03/17 06:15 Barber # (Auto) 1.1 (0.1-0.6) H 10/03/17 06:15 Eos # (Auto) 0.4 (0.0-0.7) 10/03/17 06:15 Baso # (Auto) 0.02 K/mm3 (0.0-2.0) 10/03/17 06:15 ESR 15 mm/hr (0.00-15.0) 09/29/17 15:47 PT 12.3 SECONDS (9.4-12.5) 09/29/17 12:20 INR 1.07 (0.93-1.08) 09/29/17 12:20 APTT 26.8 Seconds (25.1-36.5) 09/29/17 12:20 pO2 26 mm/Hg (30-55) L 09/29/17 12:20 VBG pH 7.33 (7.32-7.43) 09/29/17 12:20 VBG pCO2 53.0 (40-60) 09/29/17 12:20 VBG HCO3 27.9 mmol/l (21-28) 09/29/17 12:20 VBG Total CO2 29.5 mmol.L (22-28) H 09/29/17 12:20 VBG O2 Sat (Calc) 51.0 % (40-65) 09/29/17 12:20 VBG Base Excess 1.0 mmol/L (0.0-2.0) 09/29/17 12:20 VBG Potassium 4.8 mmol/L (3.6-5.2) 09/29/17 12:20 Sodium 137.0 mmol/L (132-148) 09/29/17 12:20 Chloride 103.0 mmol/L (98-107) 09/29/17 12:20 Glucose 166 mg/dl (75-110) H 09/29/17 12:20 Lactate 1.9 mmol/L (0.7-2.1) 09/29/17 12:20 FiO2 21.0 % 09/29/17 12:20 Sodium 142 mmol/L (132-148) 10/03/17 06:15 Potassium 4.4 mmol/L (3.6-5.0) 10/03/17 06:15 Chloride 104 mmol/L (98-107) 10/03/17 06:15 Carbon Dioxide 27 mmol/L (21-33) 10/03/17 06:15 Anion Gap 15 (10-20) 10/03/17 06:15 BUN 13 mg/dL (7-21) 10/03/17 06:15 Creatinine 1.0 mg/dl (0.8-1.5) 10/03/17 06:15 Est GFR ( Amer) > 60 10/03/17 06:15 Est GFR (Non-Af Amer) > 60 10/03/17 06:15 POC Glucose (mg/dL) 153 mg/dL (65-110) H 10/03/17 06:25 Random Glucose 163 mg/dL (70-110) H 10/03/17 06:15 Hemoglobin A1c 6.1 % (4.2-6.5) 09/29/17 15:47 Lactic Acid 1.5 mmol/L (0.7-2.1) 09/29/17 15:47 Calcium 8.9 mg/dL (8.4-10.5) 10/03/17 06:15 Phosphorus 3.6 mg/dL (2.5-4.5) 10/01/17 06:30 Magnesium 1.9 mg/dL (1.7-2.2) 10/01/17 06:30 Total Bilirubin 0.6 mg/dL (0.2-1.3) 10/03/17 06:15 AST 22 U/L (17-59) 10/03/17 06:15 ALT 24 U/L (7-56) 10/03/17 06:15 Alkaline Phosphatase 47 U/L (38-126) 10/03/17 06:15 C-Reactive Protein 65.80 mg/L (0.0-9.9) H 09/29/17 12:00 Total Protein 6.7 g/dL (5.8-8.3) 10/03/17 06:15 Albumin 3.8 g/dL (3.0-4.8) 10/03/17 06:15 Globulin 2.9 gm/dL 10/03/17 06:15 Albumin/Globulin Ratio 1.3 (1.1-1.8) 10/03/17 06:15 Procalcitonin 0.14 NG/ML (0.19-0.49) L 09/29/17 15:47 Venous Blood Potassium 4.8 mmol/L (3.6-5.2) 09/29/17 12:20 Urine Color Light red (YELLOW) 10/02/17 20:15 Urine Appearance Bloody (CLEAR) 10/02/17 20:15 Urine pH 6.5 (4.7-8.0) 10/02/17 20:15 Ur Specific [place] 1.015 (1.005-1.035) 10/02/17 20:15 Urine Protein 100 mg/dL (<30 mg/dL) H 10/02/17 20:15 Urine Glucose (UA) 100 mg/dL (NEGATIVE) H 10/02/17 20:15 Urine Ketones Trace mg/dL (NEGATIVE) H 10/02/17 20:15 Urine Blood Large (NEGATIVE) H 10/02/17 20:15 Urine Nitrate Negative (NEGATIVE) 10/02/17 20:15 Urine Bilirubin Small (NEGATIVE) H 10/02/17 20:15 Urine Urobilinogen 1.0 E.U./dL (<1 E.U./dL) H 10/02/17 20:15 Ur Leukocyte Esterase Trace Brynn/uL (NEGATIVE) H 10/02/17 20:15 Urine RBC Tntc /hpf (0-2) 10/02/17 20:15 Urine WBC 10 - 15 /hpf (0-6) 10/02/17 20:15 Ur Epithelial Cells None /hpf (0-5) 10/02/17 20:15 Urine Bacteria Few (NEG) 10/02/17 20:15 - Hospital Course Hospital Course: Pt seen and examined. I have reviewed the note of the medical concierge and agree with it. I have discussed the assessment and plan with the resident. I have reviewed the patient's labs and medications. Pt with improvement of his cellulitis. Will switch to PO Abx. He will f/u with Dr Flores , EZEQUIEL. He is ambulating, afebrile. Will D/C home.
[2017-10-03] MEDS: Magnesium Oxide 400 mg Tab UD PO SCH (10:16)
[2017-10-03] MEDS: POLYETHYLENE GLYCOL 3350 17 GM/Dose PACKET PO SCH (10:17)
[2017-10-03 10:18] VITALS: BP 154/62; PULSE 85
[2017-10-03] MEDS: Linezolid 600 mg in D5W 300 ml 600 MG/300 ML BAG IVPB SCH (10:18)
[2017-10-03] MEDS: Enoxaparin 40 mg Syringe SC SCH (10:18)
[2017-10-03] MEDS: TIMOLOL XE 0.5% OU SCH (10:18)
--- NOTE | 2017-10-03 10:57 | PN ---
DATE: 10/03/2017 SUBJECTIVE: Warner Benton is seen on the floor. The cellulitis is resolving very nicely on antibiotics. I will sign off. Please recall as necessary. Carlos Alberto Leonard MD
[2017-10-03] MEDS ORDERED: Piperacillin/Tazobact 3.375 gm 100 ML IVPB SCH (12:00)
== END 2017-10-03 12:26 | disposition home or self-care (01) | DRG 603 ==
LOC: ED 10:02 → ERH 12:58 → 2RNO 14:37 → 5RNO 09-30 17:11
PROVIDERS: ADMIT Internal Medicine Nephrology; ATTEND Internal Medicine Nephrology
DX: L03.311 Cellulitis of abdominal wall (principal); I25.10 Atherosclerotic heart disease of native coronary artery without angina pectoris; I10 Essential (primary) hypertension; E11.9 Type 2 diabetes mellitus without complications; K21.9 Gastro-esophageal reflux disease without esophagitis; E78.5 Hyperlipidemia, unspecified; H40.9 Unspecified glaucoma; E66.9 Obesity, unspecified; Z68.27 Body mass index [BMI] 27.0-27.9, adult; Z86.73 Personal history of transient ischemic attack (TIA), and cerebral infarction without residual deficits; Z96.641 Presence of right artificial hip joint; Z95.5 Presence of coronary angioplasty implant and graft; Z79.82 Long term (current) use of aspirin; Z79.02 Long term (current) use of antithrombotics/antiplatelets

== ENCOUNTER 2017-11-17 12:40 | Inpatient (IN) | payer BC, MEDICARE ==
[2017-11-17] MEDS ORDERED: Amiodarone 150 mg/D5W 100 ml 150 MG/100 ML BAG IVPB ONE (12:46)
[2017-11-17] MEDS ORDERED: Amiodarone 360 mg/D5W 200 ml 360 MG/200 ML BAG IV ONE (12:47)
[2017-11-17] MEDS ORDERED: Amiodarone 360 mg/D5W 200 ml 360 MG/200 ML BAG IV SCH ×2 (13:00→19:00)
[2017-11-17 13:09] LABS: BASO # 0.04 K/mm3 (0.0-2.0); BASO % 0.4 % (0.0-3.0); EOS # 0.2 (0.0-0.7); EOS % 2.3 % (1.5-5.0); GRAN # 6.75 (1.4-6.5); GRAN % 67.3 % (50.0-68.0); HEMOGLOBIN 14.3 g/dL (14.0-18.0); LYMPH # 2.1 (1.2-3.4); LYMPH % 20.9 % (22.0-35.0); MEAN CELL VOLUME 82.2 fl (80.0-105.0); MEAN CORPUSCULAR HEMOGLOBIN 27.4 pg (25.0-35.0); MEAN CORPUSCULAR HGB CONC 33.3 g/dl (31.0-37.0); MONO # 0.9 (0.1-0.6); MONO % 9.1 % (1.0-6.0); RBC 5.22 10^6/uL (3.5-6.1); RED CELL DISTRIBUTION WIDTH 14.4 % (11.5-14.5)
--- NOTE | 2017-11-17 13:13 | ED PDOC ---
Arrival/HPI - General Chief Complaint: Shortness Of Breath Time Seen by Provider: 11/17/17 12:45 Historian: Patient - Critical Care Critical Care Minutes: 45 minutes - History of Present Illness Narrative History of Present Illness (Text): 11/17/17 12:45 67 year old male, whose past medical history includes HLD, CAD, CVA, left fem- pop bypass, DM, HTN, PAD, GERD, and obesity, who was brought in to Emergency department due to syncopal episode prior to arrival. Patient states that he was in the waiting room of his foot doctor when he started feeling intermittent fluttering of his heart with associated shortness of breathe. He drank juice because he thought his glucose was low but it didn't get better. Then he passed out with no trauma. He's never had this happen before. Currently he has intermittent symptoms. Vtach noted on the monitor and patient was seen immediately on arrival by me. Amiodarone 150mg IV ordered stat and started on a drip. PMD: Dr. Flores Cripple Cutter: Dr. Stevenson Time/Duration: Prior to Arrival Symptom Onset: Sudden Symptom Course: Unchanged Activities at Onset: Light Context: Passenger Past Medical History - Provider Review Nursing Documentation Reviewed: Yes - Past History Past History: No Previous - Infectious Disease Hx of Infectious Diseases: None - Cardiac Hx Cardiac Disorders: Yes (CAD s/p PCI) Hx Hypertension: Yes - Pulmonary Hx Respiratory Disorders: No Hx Chronic Obstructive Pulmonary Disease (COPD): No - Neurological HX Cerebrovascular Accident: Yes (L-sided weakness 2004) - HEENT Hx HEENT Disorder: Yes (eyeglasses) Hx Blind: No Hx Cataracts: Yes (r eye cataract no sx left eye sx lens replacement) Hx Deafness: No Hx Difficulty Chewing: No Hx Epistaxis: No Hx Glaucoma: Yes Hx Macular Degeneration: No - Renal Hx Renal Disorder: No Hx Renal Failure: No - Endocrine/Metabolic Hx Diabetes Mellitus Type 2: Yes - Hematological/Oncological Hx Blood Disorders: No - Integumentary Hx Dermatological Disorder: No Hx Basal Cell Carcinoma: No Hx Eczema: No Hx Melanoma: No Hx Psoriasis: No Hx Squamous Cell Carcinoma: No - Musculoskeletal/Rheumatological Hx Musculoskeletal Disorders: Yes Hx Falls: No - Gastrointestinal Hx Gastrointestinal Disorders: Yes Hx Colostomy: No Hx Crohn's Disease: No Hx Diverticulitis: No Hx Gall Bladder Disease: No Hx Gastroesophageal Reflux: Yes Hx Ileostomy: No Hx Liver Failure: No Hx Pancreatitis: No HX Swallowing Problems: No - Genitourinary/Gynecological Hx Genitourinary Disorders: No Hx Hematuria: No Hx Incontinence: No Hx Prostate Problems: No Hx Sexually Transmitted Diseases: No Hx Urinary Tract Infection: No - Psychiatric Hx Psychophysiologic Disorder: No Hx Anxiety: No Hx Bipolar Disorder: No Hx Depression: No Hx Emotional Abuse: No Hx Hallucinations: No Hx Panic Disorder: No Hx Post Traumatic Stress Disorder: No Hx Psychosis: No Hx Physical Abuse: No Hx Schizophrenia: No Hx Sexual Abuse: No Hx Substance Use: No - Surgical History Hx Amputation: No Hx Appendectomy: No Hx Cardiac Catheterization: No Hx Cholecystectomy: No Hx Coronary Stent: Yes Hx Gastric Bypass Surgery: No Hx Hysterectomy: No Hx Joint Replacement: No Hx Kidney Transplant: No Hx Liver Transplant: No Hx Mastectomy: No Hx Musculoskeletal Surgery: Yes Hx Open Heart Surgery: No Hx Orthopedic Surgery: No Hx Splenectomy: No Hx Valve Replacement: No Other/Comment: left femoral arterial bypass 02/19/15, femoral angiogram x2, cardiac cath/ptca with 1 stent, right quadricept repair lle, right total hip replacement 10/2013 - Anesthesia Hx Anesthesia: Yes Hx Anesthesia Reactions: No Hx Malignant Hyperthermia: No - Suicidal Assessment Feels Threatened In Home Enviroment: No Family/Social History - Physician Review Nursing Documentation Reviewed: Yes Family/Social History: No Known Family HX Smoking Status: Never Smoked Hx Alcohol Use: Yes (OCAASIONALLY) Hx Substance Use: No Hx Substance Use Treatment: No Allergies/Home Meds Allergies/Adverse Reactions: Allergies Iodine and Iodide Containing Produc Allergy (Verified 09/29/17 15:08) RASH IV contrast Allergy (Uncoded 09/29/17 15:08) RASH Home Medications: Home Meds Medication Instructions Recorded Confirmed Losartan [Cozaar] 50 mg PO QAM 06/30/12 09/29/17 Metformin HCl 1,000 mg PO BID 06/30/12 09/29/17 Ramipril [Altace] 10 mg PO QAM 06/30/12 09/29/17 Rosuvastatin Calcium [Crestor] 20 mg PO DAILY 06/30/12 09/29/17 Timolol Maleate [Timolol GFS 5 ml] 1 drop OU QAM 06/30/12 09/29/17 Clopidogrel [Plavix] 75 mg PO DAILY 12/18/14 09/29/17 Insulin Glargine, Recombina 65 units SC HS 12/17/15 09/29/17 [Lantus] Insulin Lispro [humALOG] 20 units SC .BEFOREMEALS 12/17/15 09/29/17 Lansoprazole [Prevacid] 30 mg PO DAILY 12/17/15 09/29/17 Latanoprost 0.005% Opht [Xalatan 1 drop BOTHEYES DAILY 12/17/15 09/29/17 Opht] Aspirin [[place] Aspirin] 81 mg PO DAILY 07/07/17 09/29/17 Review of Systems - Physician Review All systems were reviewed & negative as marked: Yes - Review of Systems Constitutional: Other (patient reports not feeling well). absent: Normal Eyes: Normal ENT: Normal Respiratory: SOB. absent: Normal Cardiovascular: Other (felt like he was having heart flutters). absent: Normal Gastrointestinal: Normal Genitourinary Male: Normal Musculoskeletal: Normal Skin: Normal Neurological: Normal Endocrine: Normal Hemo/Lymphatic: Normal Psychiatric: Normal Physical Exam Vital Signs Reviewed: Yes Vital Signs Temp Pulse Resp BP Pulse Ox 11/17/17 13:30 88 20 138/70 98 11/17/17 13:15 80 18 142/73 96 11/17/17 13:00 112 H 18 138/90 98 11/17/17 12:55 114 H 18 131/80 98 11/17/17 12:45 20 11/17/17 12:41 97.9 F 105 H 20 125/68 98 Temperature: Afebrile Blood Pressure: Normal Pulse: Tachycardic Respiratory Rate: Normal Appearance: Positive for: Uncomfortable Pain Distress: None Mental Status: Positive for: Alert and Oriented X 3 - Systems Exam Head: Present: Atraumatic, Normocephalic Pupils: Present: PERRL Extroacular Muscles: Present: EOMI Conjunctiva: Present: Normal Mouth: Present: Moist Mucous Membranes Neck: Present: Normal Range of Motion Respiratory/Chest: Present: Clear to Auscultation, Good Air Exchange. No: Respiratory Distress, Accessory Muscle Use Cardiovascular: Present: Other (Palpitations) Abdomen: No: Tenderness, Distention, Peritoneal Signs Back: Present: Normal Inspection Upper Extremity: Present: Normal Inspection, NORMAL PULSES. No: Cyanosis, Edema Lower Extremity: Present: Normal Inspection, Edema, NORMAL PULSES Neurological: Present: GCS=15, CN II-XII Intact, Speech Normal, Motor Func Grossly Intact, Normal Sensory Function Skin: Present: Warm, Dry, Normal Color. No: Rashes Psychiatric: Present: Alert, Oriented x 3, Normal Insight, Normal Concentration Medical Decision Making ED Course and Treatment: 11/17/17 1 Impression: 67 year old male brought in to Emergency department by for hypoglycemia. Differential Diagnosis included but are not limited to: V tach, r/o ACS, electrolyte imbalance. Plan: -- Labs -- EKG -- X-Ray of chest -- Heparin IV -- [id number] mg IVPB once -- Amiodarone 360 mg (IV) -- Aspirin 162 mg PO (chewable) -- Reassess and disposition Prior Visits: Notes and results from previous visits were reviewed. Patient was last seen in the emergency department on 09/29/17 complaining of left lower abdominal cellulitis associated with fever, headache and nausea since that morning. Patient was hospitalized for cellulitis, fever and leukocytosis. Progress Notes: EKG shows NSR at 90 BPM, runs on V tach. Interpreted by me. Chest X-Ray reviewed by radiologist, shows: CHF pattern. 11/17/17 12:59 Discussed case with paper finisher who agrees to start him on Amiodarone and Amiodarone drip, despite the IV contrast allergy. He recommends Heparin drip. Hold Plavix since pt. is already on Plavix. 11/17/17 13:[address] Byrne who is aware of and agrees with plan for ICU admission. 11/17/17 13:[address] Vital who will accept patient to her service. She is covering for Dr. Valdez. - Lab Interpretations Lab Results: 11/17/17 13:00 11/17/17 13:00 Lab Results 11/17/17 13:00: Sodium 143, Potassium 4.2, Chloride 106, Carbon Dioxide 24, Anion Gap 18, BUN 17, Creatinine 1.0, Est GFR ( Amer) > 60, Est GFR (Non- Af Amer) > 60, Random Glucose 115 H, Calcium 9.0, Magnesium 1.8, Total Bilirubin 0.8, AST 28, ALT 28, Alkaline Phosphatase 45, Lactate Dehydrogenase 429, Total Creatine Kinase 226, Troponin I < 0.01, NT-Pro-B Natriuret Pep 110, Total Protein 7.2, Albumin 4.3, Globulin 2.8, Albumin/Globulin Ratio 1.5 11/17/17 13:00: PT 10.9, INR 0.95, APTT 26.7 11/17/17 13:00: WBC 10.0, RBC 5.22, Hgb 14.3, Hct 42.9, MCV 82.2, MCH 27.4, MCHC 33.3, RDW 14.4, Plt Count 300, MPV 10.0, Gran % 67.3, Lymph % (Auto) 20.9 L , [place] % (Auto) 9.1 H, Eos % (Auto) 2.3, Baso % (Auto) 0.4, Gran # 6.75 H, Lymph # (Auto) 2.1, [place] # (Auto) 0.9 H, Eos # (Auto) 0.2, Baso # (Auto) 0.04 - RAD Interpretation Radiology Orders: 11/17/17 12:46 CHEST PORTABLE [RAD] Stat Blast Furnace Helper: Radiologist - EKG Interpretation Interpreted by ED Physician: Yes Type: 12 lead EKG - Medication Orders Current Medication Orders: Amiodarone HCl/Dextrose (Nexterone 360 Mg In D5w 200 Ml (Premix)) 360 mg in 200 mls @ 33.333 mls/hr IV .Q6H ALFREDO; 1 MG/MIN PRN Reason: Protocol Heparin Sodium/Sodium Chloride (Heparin 42838 Units/250ml 1/2 Normal Saline) 25 ,000 units in 250 mls @ 15.905 mls/hr IV .[id number] ALFREDO; 12 UNITS/KG/HR PRN Reason: Protocol Last Admin: 11/17/17 13:42 Dose: 15.905 mls/hr eMAR Start Stop Document 11/17/17 13:42 GABBI (Rec: 11/17/17 13:43 GABBI BEAVER-PC) Intravenous Solution Start Date 11/17/17 Start Time 13:42 End Date 11/17/17 Discontinued Medications Aspirin (Aspirin Chewable) 162 mg PO STAT STA Stop: 11/17/17 13:02 Last Admin: 11/17/17 13:15 Dose: 162 mg Heparin Sodium (Porcine) (Heparin) 4,000 units IV ONCE ONE PRN Reason: Protocol Stop: 11/17/17 13:13 Last Admin: 11/17/17 13:41 Dose: 4,000 units eMAR Start Stop Document 11/17/17 13:41 GABBI (Rec: 11/17/17 13:42 GABBI BEAVER-PC) Intravenous Solution Start Date 11/17/17 Start Time 13:40 End Date 11/17/17 End time 13:41 Total Infusion Time 1 Amiodarone HCl/Dextrose (Nexterone 150 Mg In Dextrose 100 Ml (Premix)) 150 mg in 100 mls @ 600 mls/hr IVPB ONCE ONE PRN Reason: Protocol Stop: 11/17/17 12:55 Last Admin: 11/17/17 12:45 Dose: 600 mls/hr eMAR Start Stop Document 11/17/17 12:45 GABBI (Rec: 11/17/17 13:47 GABBI BEAVER-PC) Intravenous Solution Start Date 08/30/18 Start Time 12:50 End Date 11/17/17 End time 13:00 Total Infusion Time 10 - Scribe Statement The provider has reviewed the documentation as recorded by the Scribe Kerri Bowman All medical record entries made by the Scribe were at my direction and personally dictated by me. I have reviewed the chart and agree that the record accurately reflects my personal performance of the history, physical exam, medical decision making, and the department course for this patient. I have also personally directed, reviewed, and agree with the discharge instructions and disposition. Disposition/Present on Arrival - Present on Arrival Any Indicators Present on Arrival: No History of DVT/PE: No History of Uncontrolled Diabetes: No Urinary Catheter: No History of Decub. Ulcer: No History Surgical Site Infection Following: None - Disposition Have Diagnosis and Disposition been Completed?: Yes Diagnosis: V-tach, Syncope Disposition: HOSPITALIZED Disposition Time: 13:45 Patient Plan: Admission, ICU Condition: CRITICAL Discharge Instructions (ExitCare): Syncope (ED) Referrals: Mahesh Flores MD [Primary Care Provider] - Follow up with primary Forms: [employer] (Swazi)
[2017-11-17] MEDS ORDERED: Heparin25000 units/250ml 1/2NS 25,000 UNITS/250 ML BAG IV SCH (13:15)
--- NOTE | 2017-11-17 13:20 | RAD ---
Date of service: 11/17/2017 HISTORY: chest flutter/sob COMPARISON: Portable chest 09/29/2017. FINDINGS: LUNGS: Potential limited right infrahilar airspace disease with left chest clear. PLEURA: No significant pleural effusion identified, no pneumothorax apparent. CARDIOVASCULAR: Stable prominent cardiac silhouette. Pulmonary vascular pattern appears increased suggesting pulmonary vascular congestion. Clinically correlate further. OSSEOUS STRUCTURES: No significant abnormalities. VISUALIZED UPPER ABDOMEN: Normal. OTHER FINDINGS: None. IMPRESSION: Pattern most compatible with active CHF. Clinically correlate further. Underlying infiltrate not excluded the right infrahilar space.
[2017-11-17 13:23] LABS: ALB/GLOB RATIO 1.5 (1.1-1.8); ALBUMIN 4.3 g/dL (3.0-4.8); ALT/SGPT 28 U/L (7-56); AST/SGOT 28 U/L (17-59); BLOOD UREA NITROGEN 17 mg/dL (7-21); GFR NON-AFRICAN AMERICAN > 60
[2017-11-17 13:25] LABS: INR 0.95; PARTIAL THROMBOPLASTIN TIME 26.7 Seconds (25.1-36.5); PROTHROMBIN TIME 10.9 SECONDS (9.4-12.5)
[2017-11-17 13:35] LABS: B-TYPE NATRIURETIC PEPTIDE 110 pg/mL (0-450); TROPONIN I < 0.01 ng/mL
[2017-11-17 14:24] LABS: VENOUS BLOOD GAS PO2 113 mm/Hg (30-55)
[2017-11-17] MEDS ORDERED: Phenylephrine 10 mg/ml Inj ONE (14:32)
[2017-11-17] MEDS ORDERED: Iohexol 350mgl/ml 50 ML ONE (14:33)
[2017-11-17] MEDS ORDERED: Nitroglycerin 50mg in D5W 0 MG/0 ML BOTTLE IV ONE (14:33)
[2017-11-17] MEDS ORDERED: Iodixanol 320 MG/ML 200 ML BOTTLE IV ONE (14:33)
[2017-11-17] MEDS ORDERED: Famotidine 20mg/50ml 20 MG/50 ML BAG IVPB ONE (14:40)
[2017-11-17] MEDS ORDERED: DiphenhydrAMINE 50 mg/ml Inj ONE (14:40)
[2017-11-17] MEDS ORDERED: Midazolam 2 MG/2 ML VIAL ONE (15:03)
[2017-11-17] MEDS ORDERED: Sodium Chloride 0.9% 1,000 ML IV SCH (16:00)
[2017-11-17] MEDS ORDERED: Insulin Lispro 1 UNITS/0.01 ML SC SCH (16:30)
[2017-11-17 20:49] VITALS: TEMP 98.2; BMI 39.6
[2017-11-17] MEDS ORDERED: Pneumococcal 23-Valent Vaccine IM ONE (20:50)
--- NOTE | 2017-11-17 21:49 | CON ---
Copied To: Italo Byrne MD Attending MD: Italo Byrne MD DATE: 11/17/2017 HISTORY OF PRESENT ILLNESS: The patient is 67-year-old gentleman with history of coronary artery disease (4 stents, placed several years ago), diabetes, hypertension, hypercholesterolemia, who presented at this time after episode of passing out, preceded by fluttering sensation in his chest. He never had this episode before. He denies any chest pain; however, reports being diaphoretic and short of breath prior to the episode. No fever, no chills, no sweats. No nausea, no vomiting, no diarrhea, no constipation. Here in [facility] ER, patient was found to have multiple recurrent episodes of wide complex tachycardias. Provided that the patient has a history of coronary artery disease he was treated as new onset of primary coronary event. The patient was started on heparin drip, aspirin, statins, beta-blockers, and will be taken to the crime lab analyst emergently by Dr. Jack. PAST MEDICAL HISTORY: Diabetes, hypertension, hypercholesterolemia, coronary artery disease. SOCIAL HISTORY: No alcohol or illicit drug abuse. No tobacco smoking. ALLERGIES: IV CONTRAST. REVIEW OF SYSTEMS: Review of 12-organ system other than mentioned in history of present illness is negative. MEDICATIONS: Coreg, aspirin, Prevacid, lispro, Lantus, Plavix, Crestor, Altace, metformin, Cozaar. PHYSICAL EXAMINATION: VITAL SIGNS: Blood pressure 125/70, heart rate 92, respiratory 16, oxygen saturation 97% on 2 liters nasal cannula. ENT: Head and neck atraumatic. LUNGS: Clear auscultation bilaterally. HEART: Regular rate and rhythm. S1 and S2 normal; however, frequent nonsustained V-tach visible on the monitor. ABDOMEN: Soft, nontender, nondistended. MUSCULOSKELETAL: 1 to 2+ bilateral pedal and ankle edema. NEUROLOGICAL: The patient moves all extremities spontaneously. SKIN: Moist. PSYCHIATRIC: The patient is alert, awake and oriented x3. DIAGNOSTIC DATA: EKG showed nonsustained V-tach with right bundle-branch block and left anterior fascicular block. Lying chest x-ray, no active pulmonary disease. LABORATORY DATA: WBC 10, hemoglobin 14.3, platelet count 300. Sodium 143, potassium 4.2, chloride 106, carbon dioxide 24, BUN 17, creatinine 1, glucose 115, AST 28, ALT 28, total bilirubin 0.8. Troponin less than 0.01. PTT 26.7. INR 0.95. Chest x-ray showed mild vascular congestion. ASSESSMENT: This is a 67-year-old gentleman with history of coronary artery disease (4 stents about several years ago), who presented with episode of loss of consciousness and subsequently was found to have multiple unsustained V-tach on the EKG and monitor. The patient was treated as a non-STEMI and will be taken to crime lab analyst for PCI and potentially AICD placement. Meanwhile, the patient is on amiodarone and aspirin. Cardiology service is on-board. Would recommend, dap, statins, bb ccm time 40 min Italo Byrne MD MTDD
[2017-11-17] MEDS ORDERED: Insulin Detemir 100 units/ml Vial (Levemir) SC SCH (22:00)
--- NOTE | 2017-11-18 03:29 | CON ---
Copied To: Raymond Jack MD Attending MD: Raymond Jack MD DATE: 11/17/2017 REQUESTING PHYSICIAN: Dr. Feliz Rowley REASON FOR CONSULTATION: Syncope, ventricular tachycardia. 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 He has had intermittent palpitations repeatedly. He was fell that he was hypoglycemic and called his who has came to take him home. In the car, he had recurrent lightheadedness and was brought to the emergency room. In the emergency room, he is noted to have episodes of sustained ventricular tachycardia which terminated spontaneously. He was started on IV amiodarone drip. He denies any chest pain or worsening dyspnea lately. PAST MEDICAL HISTORY: Notable for the problems mentioned above. He does have a longstanding history of diabetes. 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 He has a history of peripheral vascular disease, status post vascular bypass surgery and peripheral interventions. He also has a history of hypertension, hyperlipidemia, chronic obesity, peripheral neuropathy, glaucoma and bifascicular block. CURRENT MEDICATIONS: Include ramipril, carvedilol, losartan, Crestor, insulin, metformin, Plavix, Prevacid, aspirin, timolol eyedrops. ALLERGIES: HE HAS HAD A REACTION TO IODINE IN THE PAST. SOCIAL HISTORY: He does not smoke or drink. He is disabled. He lives with his . FAMILY HISTORY: Both parents from age-related illness. REVIEW OF SYSTEMS: A 10-point review of systems is otherwise unremarkable. PHYSICAL EXAMINATION: GENERAL: He is a obese middle-aged man. VITAL SIGNS: His blood pressure is 126/60 with a pulse of 90, respirations of 16. He is afebrile. HEENT: Normocephalic, atraumatic. NECK: Supple. No JVD noted. CHEST: Few scattered rhonchi heard. HEART: PMI displaced laterally, normal breath sounds noted. ABDOMEN: Soft, nontender, obese with normoactive bowel sounds. EXTREMITIES: Diminished distal pulses. No edema. SKIN: Warm and dry. PSYCHIATRIC: Normal mood and affect. NEUROLOGIC: Left hemiparesis is present. DIAGNOSTIC DATA Initial troponin is not detected. CK is 226, potassium 4.2. BUN and creatinine is 17 and 1. White count 10, hemoglobin and hematocrit are 14.3 and 42.9 with platelet count of 300,000. Venous blood gas showed pH 7.40, pCO2 of 42, pO2 of 113. IMPRESSION: 1. Recurrent ventricular tachycardia, possibly due to cardiac ischemia or residual cardiac scar. 2. Coronary artery disease status post prior percutaneous coronary intervention. 3. Rest of problems as noted. RECOMMENDATIONS: Given the above findings, urgent catheterization will be performed. If a suitable lesion is found, urgent PCI will be performed as well. IV amiodarone will be continued for now. Further recommendations will be based upon results of his catheterization and his clinical course. Raymond Jack MD MTDD
--- NOTE | 2017-11-18 03:57 | HP ---
Copied To: Jeanne Vital MD Attending MD: Jeanne Vital MD HISTORY OF PRESENT ILLNESS: The patient is 67 years old, morbidly obese male, came to emergency room because of syncope episode. 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 They gave him orange juice thinking that he might have hypoglycemia. Since he did not improve, ambulance was called, and he was brought to emergency room. By the time he reached [facility], he was found to be in V-tach, and so in ER, patient received 150 mg of IV amiodarone, was started on amiodarone drip. Dr. Jack was consulted, who wanted to rule out underlying ischemia. Patient was taken to clinical lab scientist and was found to be nonobstructive coronaries. He denies any fever or chills . He denies any headache. He feels better now. PAST MEDICAL HISTORY: Significant for; 1. Hypertension. 2. Peripheral vascular disease. 3. Status post fem-pop bypass. 4. Status post angioplasty. 5. History of previous CVA. 6. History of gastritis. 7. Hypertension. 8. insulin-dependent diabetes. ALLERGIES: HE IS ALLERGIC TO IODINE AND IODINE CONTAINING PRODUCTS, IV CONTRAST. MEDICATIONS: At home, he is on carvedilol 10 mg daily, aspirin 81 daily, Xalatan eyedrops, Prevacid 30 mg daily, Humalog 20 unit before each meal, takes Lantus 65 units at bedtime, Plavix 75 daily, Crestor 20 mg daily, ramipril 10 mg every morning, metformin 1000 twice a day, losartan 50 mg daily. SOCIAL HISTORY: Lives with his family. Denies smoking or drinking, only he drinks socially. REVIEW OF SYSTEMS: Significant for having generalized weakness. PHYSICAL EXAMINATION: GENERAL: He is awake, alert, oriented, communicative. VITAL SIGNS: He is afebrile, pulse 93, respirations 19, blood pressure 127/59. LUNGS: Bilateral fair airflow. No rhonchi or crackle. HEART: S1 and S2 audible. ABDOMEN: Soft, nontender. No rebound. No guarding. NEUROLOGIC: He is awake, alert, oriented, communicative. LABORATORY DATA: WBC 10, hemoglobin 14.3, hematocrit 42.9, platelet 300. PT 10.9, INR 0.95. Chemistry: Sodium 143, potassium 4.2, chloride 106, CO2 of 24, BUN 17, creatinine 1. Blood sugar 115. LFTs are within normal limit. Troponin 0.01. DIAGNOSTIC DATA: X-ray of chest show compatible with CHF. ASSESSMENT: 1. Congestive heart failure. 2. Episode of ventricular tachycardia, status post cardiac catheterization. 3. insulin-dependent diabetes. 4. Hypertension. 5. Hyperlipidemia. 6. Peripheral vascular disease. PLAN: Patient will be admitted in ICU. We will restart his usual medication. We will start him on aspirin. Currently he is amiodarone drip and was evaluated by Dr. Jack. We will follow up his electrolytes, CBC and CMP in a.m. Jeanne Vital MD
[2017-11-18 06:07] VITALS: BP 162/67; PULSE 112; RESP 50; O2SAT 96
[2017-11-18] MEDS ORDERED: Pantoprazole 40 mg EC Tab PO SCH (06:30)
--- NOTE | 2017-11-18 08:03 | CARDCATH ---
Copied To: Raymond Jack MD Attending MD: Raymond Jack MD PROCEDURE DATE: 11/17/2017 CARDIAC CATHETERIZATION REPORT PROCEDURES: 1. Selective left and right coronary angiography. 2. Left ventriculography. 3. Right femoral arteriography. 4. Mynx deployment. HISTORY: This is a 67-year-old man with known coronary artery disease, status post previous PCI of his left circumflex artery who had a syncopal event earlier today. He was presented to the emergency room and was found to have frequent episodes of sustained ventricular tachycardia. He was started on IV amiodarone. He denies any chest pain. Urgent catheterization was advised. INDICATIONS: 1. Syncope. 2. Ventricular tachycardia. 3. Known coronary artery disease. FINDINGS: HEMODYNAMICS: Aortic pressure was 100/60 with left ventricular pressure of 100/16. CORONARY ANATOMY: 1. The left main stem was normal. 2. Left anterior descending artery and its branches had mild irregularities, but no obstructive stenosis noted. 3. 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 This had patent stent in its proximal segment. The distal vessel had minimal irregularities. 4. The right coronary artery was occluded proximally, which is noted to be chronic. Faint left to right collaterals were noted. LEFT VENTRICULOGRAPHY: A hand injection was performed on the left ventricle revealing a relatively normal wall motion with an ejection fraction of 60%. RIGHT FEMORAL ARTERIOGRAPHY: The right femoral arteriogram was performed revealing no evidence of significant disease and appropriate level of arterial puncture. The puncture site was then closed with deployment of Mynx device. CONCLUSION: 1. Chronically occluded right coronary artery. 2. Patent left circumflex stent. 3. Normal LAD and left main. 4. Normal LV systolic function. RECOMMENDATIONS: Given the above findings, IV amiodarone will be continued and given his syncope with ventricular tachycardia, arrangements were made for ICD implant. His rest of the medications will continue unchanged. Raymond Jack MD cc: Mahesh Flores MD
--- NOTE | 2017-11-18 09:33 | CARD ---
APPROVED REPORT Date of service: 11/17/2017 EKG Measurement Heart [id number] CO [id number] <Conclusion> RSR with 15 beat run of rapid rhythm VT vs AF with RVR
[2017-11-18] MEDS ORDERED: TIMOLOL XE 0.5% OU SCH (10:00)
[2017-11-18] MEDS ORDERED: CARVEDILOL 10 MG PO SCH (10:00)
--- NOTE | 2017-11-19 11:13 | DS ---
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 Jeanne Vital MD
== END 2017-11-18 06:20 | disposition short-term general hospital (02) | DRG 287 ==
LOC: ED 12:40 → ERH 13:45 → ICU 15:42
PROVIDERS: ADMIT Internal Medicine Nephrology; ATTEND Internal Medicine Nephrology
PROC: 4A023N7 Measurement of Cardiac Sampling and Pressure, Left Heart, Percutaneous Approach (ICD-10-PCS; principal; 2017-11-17)
PROC: B2151ZZ Fluoroscopy of Left Heart using Low Osmolar Contrast (ICD-10-PCS; 2017-11-17)
PROC: B2111ZZ Fluoroscopy of Multiple Coronary Arteries using Low Osmolar Contrast (ICD-10-PCS; 2017-11-17)
DX: I47.2 Ventricular tachycardia (principal); I69.254 Hemiplegia and hemiparesis following other nontraumatic intracranial hemorrhage affecting left non-dominant side; I25.10 Atherosclerotic heart disease of native coronary artery without angina pectoris; I25.82 Chronic total occlusion of coronary artery; I11.0 Hypertensive heart disease with heart failure; I50.9 Heart failure, unspecified; I45.2 Bifascicular block; E11.51 Type 2 diabetes mellitus with diabetic peripheral angiopathy without gangrene; H40.9 Unspecified glaucoma; E78.5 Hyperlipidemia, unspecified; K21.9 Gastro-esophageal reflux disease without esophagitis; E78.00 Pure hypercholesterolemia, unspecified; E66.01 Morbid (severe) obesity due to excess calories; Z68.39 Body mass index [BMI] 39.0-39.9, adult; Z96.641 Presence of right artificial hip joint; Z95.5 Presence of coronary angioplasty implant and graft; Z95.828 Presence of other vascular implants and grafts; Z79.4 Long term (current) use of insulin; Z79.82 Long term (current) use of aspirin; Z79.02 Long term (current) use of antithrombotics/antiplatelets